=== PATIENT | female | born 1990 | race Caucasian/White ===

== ENCOUNTER 2021-04-08 08:20 | Inpatient (IN) | payer BC ==
[2021-04-08] MEDS ORDERED: HYDROmorphone 0.5 MG/0.5 ML Syringe IVPUSH ONE ×2 (08:36→10:16)
[2021-04-08] MEDS ORDERED: Metoclopramide 10 MG/2 ML SDV IVPUSH ONE (08:36)
--- NOTE | 2021-04-08 08:40 | EDM.PDOC ---
ED HPI GENERAL MEDICAL PROBLEM - General Chief Complaint: Gastrointestinal Problem Stated Complaint: HIRAL AMB Time Seen by Provider: 04/08/21 08:35 Source of Information: Reports: Patient History Limitations: Reports: No Limitations - History of Present Illness INITIAL COMMENTS - FREE TEXT/NARRATIVE: 30-year-old female presents to the ED per [place] [facility] from her own home here in [place]. Patient reports that she started to feel ill shortly after suppertime last evening. She did not eat much for supper. She developed nausea and started vomiting about 0300 hrs. this morning. This contained bilious emesis. She has had 2 large volume yellow diarrhea stools this morning associated with diffuse periumbilical cramping pain. Associated chills and reported fever by paramedics and the patient. She is afebrile upon presentation to the ED. no previous abdominal surgery. She states that she has underlying glomerular nephropathy since 2004 and is on tacrolimus course CellCept for this. She is also on prednisone 20 mg daily. She also states that she is on Bactrim double strength Wednesdays and Fridays 1 tablet since August of this last year when she started a higher dose of prednisone for her glomerulonephritis. She is not able to keep this down this morning. She will therefore require steroid supplementation. Of note the patient has completed both doses of her COVID-19 vaccine in November and December of this year. Onset: Today, Sudden Onset Date: 04/08/21 Onset Time: 03:00 (Started vomiting around 0300 hrs. this morning. Nausea was present after supper last night. Development of diarrhea x2 early this morning as well.) Duration: Hour(s):, Constant, Getting Worse Location: Reports: Abdomen (Mid abdominal cramping pain associate with nausea vomiting and diarrhea.) Quality: Reports: Sharp, Stabbing, Other (Strong colicky component to her pain.) Severity: Moderate Improves with: Reports: None Worsens with: Reports: None Context: Reports: Other. Denies: Activity, Exercise, Lifting, Sick Contact, Trauma Associated Symptoms: Reports: Fever/Chills (Fever and chills appreciated at home but not in the ED.), Loss of Appetite, Malaise, Nausea/Vomiting, Weakness. Denies: Confusion, Chest Pain, Cough, cough w sputum, Diaphoresis, Headaches, Seizure, Shortness of Breath, Syncope Treatments [employer]: Reports: Other (see below) (No medicine would stay down.) abdomen Pain Score (Numeric/FACES): 8 - Related Data Allergies Allergy/AdvReac Type Severity Reaction Status Date / Time No Known Allergies Allergy Verified 04/08/21 08:33 Home Meds: Home Meds Norethindrone-Ethin. 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.) : 0 Social & Family History - Tobacco Use Tobacco Use Status *Q: Never Tobacco User - Living Situation & Occupation Occupation: Employed ED ROS GENERAL - Review of Systems Review Of Systems: See Below Constitutional: Reports: Fever, Chills, Malaise, Weakness, Fatigue, Decreased Appetite HEENT: Reports: No Symptoms Respiratory: Reports: No Symptoms Cardiovascular: Reports: No Symptoms Endocrine: Reports: Fatigue GI/Abdominal: Reports: Abdominal Pain, Diarrhea (See history of present illness), Nausea, Vomiting : Reports: No Symptoms Musculoskeletal: Reports: No Symptoms Skin: Reports: No Symptoms Neurological: Reports: No Symptoms Psychiatric: Reports: No Symptoms Hematologic/Lymphatic: Reports: No Symptoms Immunologic: Reports: No Symptoms ED EXAM, GI/ABD - Physical Exam Exam: See Below Exam Limited By: No Limitations General Appearance: Alert, WD/WN, Mild Distress, Other (Patient vomited just before coming into the ED. Temperature is 36.6 degrees. Heart rate 117 and sinus at the bedside. Respiratory of 24 with O2 sats of 96% room air. BP elevated 154/106) Eyes: Bilateral: Normal Appearance (No scleral icterus or blepharal pallor.) Throat/Mouth: Other (Tongue is mildly coated and dry.) Head: Atraumatic, Normocephalic Neck: Normal Inspection, Supple, Non-Tender, Full Range of Motion. No: Lymphadenopathy (L), Lymphadenopathy (R) Respiratory/Chest: No Respiratory Distress, Lungs Clear, Normal Breath Sounds, No Accessory Muscle Use Cardiovascular: Normal Peripheral Pulses, Regular Rate, Rhythm, No Edema, No Gallop, No Murmur, No Rub GI/Abdominal Exam: Soft, No Organomegaly, No Abnormal Bruit, Tender (Tenderness suprapubically left lower quadrant without guarding or rebound.), Abnormal Bowel Sounds (Bowel sounds are hyperactive in all 4 quadrants.), Other (No surgical scars). No: Guarding, Rigid, Rebound Back Exam: Normal Inspection, Full Range of Motion. No: CVA Tenderness (L), CVA Tenderness (R) Extremities: Normal Inspection, Normal Range of Motion, Non-Tender, No Pedal Edema Neurological: Alert, Oriented, CN II-XII Intact, Normal Cognition Psychiatric: Anxious Skin Exam: Warm, Dry, Intact, Normal Color, No Rash Course - Vital Signs Last Recorded V/S: Last Vital Signs Temp 37.4 C 04/08/21 14:02 Pulse 91 04/08/21 14:02 Resp 15 04/08/21 13:58 BP 133/79 04/08/21 13:58 Pulse Ox 93 L 04/08/21 14:02 - Orders/Labs/Meds Orders: Active Orders 24 hr Category Date Time Status BLOOD CULTURE [MREF] Stat Lab 04/08/21 09:20 Received BLOOD CULTURE [MREF] Stat Lab 04/08/21 09:30 Received FECAL LACTOFERRIN [MREF] Stat Lab 04/08/21 10:32 Received STOOL CULTURE/SHIGA TOXIN [MREF] Stat Lab 04/08/21 10:32 Received Dextrose 5%-Lactated Ringers 1,000 ml Med 04/08/21 08:45 Active IV ASDIRECTED Sodium Chloride 0.9% [Normal Saline] 1,000 ml Med 04/08/21 10:15 Active IV ASDIRECTED Sodium Chloride 0.9% [Saline Flush] Med 04/08/21 11:19 Active 10 ml FLUSH ONETIME PRN Blood Culture x2 Reflex Set [OM.PC] Stat Oth 04/08/21 08:46 Ordered Medication Orders Dextrose/Lactated Ringer's (Dextrose 5%-Lactated Ringers) 1,000 mls @ 999 mls/hr IV ASDIRECTED DARON Last Admin: 04/08/21 08:45 Dose: 999 mls/hr Documented by: TANNER Sodium Chloride (Normal Saline) 1,000 mls @ 250 mls/hr IV ASDIRECTED [facility] Last Admin: 04/08/21 10:30 Dose: 250 mls/hr Documented by: TANNER Metronidazole 500 mg/ Premix 100 mls @ 100 mls/hr IV Q8H [facility] Last Admin: 04/08/21 14:50 Dose: 100 mls/hr Documented by: LACHELLE Ceftriaxone Sodium 2 gm/ (Sodium Chloride) 100 mls @ 200 mls/hr IV Q24H [facility] Sodium Chloride (Sodium Chloride 0.9% 10 Ml Syringe) 10 ml FLUSH ONETIME PRN PRN Reason: IV FLUSH Last Admin: 04/08/21 11:27 Dose: 10 ml Documented by: JORGE L Labs: Laboratory Tests 04/08/21 04/08/21 04/08/21 Range/Units 08:25 08:52 08:52 WBC 15.14 H (3.98-10.04) K/mm3 RBC 4.38 (3.98-5.22) M/mm3 Hgb 13.6 (11.2-15.7) gm/dl Hct 41.9 (34.1-44.9) % MCV 95.7 H (79.4-94.8) fl MCH 31.1 (25.6-32.2) pg MCHC 32.5 (32.2-35.5) g/dl RDW Std Deviation 47.4 H (36.4-46.3) fL Plt Count 264 (182-369) K/mm3 MPV 9.6 (9.4-12.3) fl Neut % (Auto) 87.8 H (34.0-71.1) % Lymph % (Auto) 5.6 L (19.3-51.7) % [place] % (Auto) 5.1 (4.7-12.5) % Eos % (Auto) 0.2 L (0.7-5.8) Baso % (Auto) 0.2 (0.1-1.2) % Neut # (Auto) 13.29 H (1.56-6.13) K/mm3 Lymph # (Auto) 0.85 L (1.18-3.74) K/mm3 [place] # (Auto) 0.77 H (0.24-0.36) K/mm3 Eos # (Auto) 0.03 L (0.04-0.36) K/mm3 Baso # (Auto) 0.03 (0.01-0.08) K/mm3 Manual Slide Review Normal smear Sodium 139 (136-145) mEq/L Potassium 3.7 (3.5-5.1) mEq/L Chloride 104 (98-107) mEq/L Carbon Dioxide 23 (21-32) mEq/L Anion Gap 15.7 H (5-15) BUN 21 H (7-18) mg/dL Creatinine 1.2 H (0.55-1.02) mg/dL Est Cr Clr Drug Dosing 61.12 mL/min Estimated GFR (MDRD) 52 (>60) mL/min BUN/Creatinine Ratio 17.5 (14-18) Glucose 135 H (70-99) mg/dL Lactic Acid (0.4-2.0) mmol/L Calcium 8.0 L (8.5-10.1) mg/dL Magnesium 1.5 L (1.8-2.4) mg/dL Total Bilirubin 0.4 (0.2-1.0) mg/dL AST 25 (15-37) U/L ALT 27 (14-59) U/L Alkaline Phosphatase 18 L (46-116) U/L C-Reactive Protein 2.4 H* (<1.0) mg/dL Total Protein 6.1 L (6.4-8.2) g/dl Albumin 3.0 L (3.4-5.0) g/dl Globulin 3.1 gm/dL Albumin/Globulin Ratio 1.0 (1-2) Lipase 177 (73-393) U/L Urine Color (Yellow) Urine Appearance (Clear) Urine pH (5.0-8.0) Ur Specific [place] (1.005-1.030) Urine Protein (Negative) Urine Glucose (UA) (Negative) Urine Ketones (Negative) Urine Occult Blood (Negative) Urine Nitrite (Negative) Urine Bilirubin (Negative) Urine Urobilinogen (0.2-1.0) Ur Leukocyte Esterase (Negative) Urine RBC (0-5) /hpf Urine WBC (0-5) /hpf Ur Epithelial Cells (0-5) /hpf Urine Bacteria (FEW) /hpf Urine Mucus (FEW) /hpf C.difficile 027-NAP1-B1 C. difficile Tox (PCR) Influenza Type A RNA Negative (NEGATIVE) Influenza Type B RNA Negative (NEGATIVE) SARS-CoV-2 RNA (TWAN) Negative (NEGATIVE) 04/08/21 04/08/21 04/08/21 Range/Units 09:30 10:32 10:35 WBC (3.98-10.04) K/mm3 RBC (3.98-5.22) M/mm3 Hgb (11.2-15.7) gm/dl Hct (34.1-44.9) % MCV (79.4-94.8) fl MCH (25.6-32.2) pg MCHC (32.2-35.5) g/dl RDW Std Deviation (36.4-46.3) fL Plt Count (182-369) K/mm3 MPV (9.4-12.3) fl Neut % (Auto) (34.0-71.1) % Lymph % (Auto) (19.3-51.7) % [place] % (Auto) (4.7-12.5) % Eos % (Auto) (0.7-5.8) Baso % (Auto) (0.1-1.2) % Neut # (Auto) (1.56-6.13) K/mm3 Lymph # (Auto) (1.18-3.74) K/mm3 [place] # (Auto) (0.24-0.36) K/mm3 Eos # (Auto) (0.04-0.36) K/mm3 Baso # (Auto) (0.01-0.08) K/mm3 Manual Slide Review Sodium (136-145) mEq/L Potassium (3.5-5.1) mEq/L Chloride (98-107) mEq/L Carbon Dioxide (21-32) mEq/L Anion Gap (5-15) BUN (7-18) mg/dL Creatinine (0.55-1.02) mg/dL Est Cr Clr Drug Dosing mL/min Estimated GFR (MDRD) (>60) mL/min BUN/Creatinine Ratio (14-18) Glucose (70-99) mg/dL Lactic Acid 3.0 H* (0.4-2.0) mmol/L Calcium (8.5-10.1) mg/dL Magnesium (1.8-2.4) mg/dL Total Bilirubin (0.2-1.0) mg/dL AST (15-37) U/L ALT (14-59) U/L Alkaline Phosphatase (46-116) U/L C-Reactive Protein (<1.0) mg/dL Total Protein (6.4-8.2) g/dl Albumin (3.4-5.0) g/dl Globulin gm/dL Albumin/Globulin Ratio (1-2) Lipase (73-393) U/L Urine Color Yellow (Yellow) Urine Appearance Clear (Clear) Urine pH 6.5 (5.0-8.0) Ur Specific [place] 1.025 (1.005-1.030) Urine Protein 2+ H (Negative) Urine Glucose (UA) Trace H (Negative) Urine Ketones Negative (Negative) Urine Occult Blood 1+ H (Negative) Urine Nitrite Negative (Negative) Urine Bilirubin Negative (Negative) Urine Urobilinogen 0.2 (0.2-1.0) Ur Leukocyte Esterase Trace H (Negative) Urine RBC 5-10 H (0-5) /hpf Urine WBC 0-5 (0-5) /hpf Ur Epithelial Cells 0-5 (0-5) /hpf Urine Bacteria Moderate H (FEW) /hpf Urine Mucus Few (FEW) /hpf C.difficile 027-NAP1-B1 Presumptive negative C. difficile Tox (PCR) Negative Influenza Type A RNA (NEGATIVE) Influenza Type B RNA (NEGATIVE) SARS-CoV-2 RNA (TWAN) (NEGATIVE) 04/08/21 Range/Units 12:10 WBC (3.98-10.04) K/mm3 RBC (3.98-5.22) M/mm3 Hgb (11.2-15.7) gm/dl Hct (34.1-44.9) % MCV (79.4-94.8) fl MCH (25.6-32.2) pg MCHC (32.2-35.5) g/dl RDW Std Deviation (36.4-46.3) fL Plt Count (182-369) K/mm3 MPV (9.4-12.3) fl Neut % (Auto) (34.0-71.1) % Lymph % (Auto) (19.3-51.7) % [place] % (Auto) (4.7-12.5) % Eos % (Auto) (0.7-5.8) Baso % (Auto) (0.1-1.2) % Neut # (Auto) (1.56-6.13) K/mm3 Lymph # (Auto) (1.18-3.74) K/mm3 [place] # (Auto) (0.24-0.36) K/mm3 Eos # (Auto) (0.04-0.36) K/mm3 Baso # (Auto) (0.01-0.08) K/mm3 Manual Slide Review Sodium (136-145) mEq/L Potassium (3.5-5.1) mEq/L Chloride (98-107) mEq/L Carbon Dioxide (21-32) mEq/L Anion Gap (5-15) BUN (7-18) mg/dL Creatinine (0.55-1.02) mg/dL Est Cr Clr Drug Dosing mL/min Estimated GFR (MDRD) (>60) mL/min BUN/Creatinine Ratio (14-18) Glucose (70-99) mg/dL Lactic Acid 1.0 (0.4-2.0) mmol/L Calcium (8.5-10.1) mg/dL Magnesium (1.8-2.4) mg/dL Total Bilirubin (0.2-1.0) mg/dL AST (15-37) U/L ALT (14-59) U/L Alkaline Phosphatase (46-116) U/L C-Reactive Protein (<1.0) mg/dL Total Protein (6.4-8.2) g/dl Albumin (3.4-5.0) g/dl Globulin gm/dL Albumin/Globulin Ratio (1-2) Lipase (73-393) U/L Urine Color (Yellow) Urine Appearance (Clear) Urine pH (5.0-8.0) Ur Specific [place] (1.005-1.030) Urine Protein (Negative) Urine Glucose (UA) (Negative) Urine Ketones (Negative) Urine Occult Blood (Negative) Urine Nitrite (Negative) Urine Bilirubin (Negative) Urine Urobilinogen (0.2-1.0) Ur Leukocyte Esterase (Negative) Urine RBC (0-5) /hpf Urine WBC (0-5) /hpf Ur Epithelial Cells (0-5) /hpf Urine Bacteria (FEW) /hpf Urine Mucus (FEW) /hpf C.difficile 027-NAP1-B1 C. difficile Tox (PCR) Influenza Type A RNA (NEGATIVE) Influenza Type B RNA (NEGATIVE) SARS-CoV-2 RNA (TWAN) (NEGATIVE) Meds: Medications Generic Name Dose Route Start Last Admin Trade Name Tabitha PRN Reason Stop Dose Admin Dextrose/Lactated Ringer's 1,000 mls @ 999 mls/hr 04/08/21 08:45 04/08/21 08:45 Dextrose 5%-Lactated Ringers IV 999 mls/hr ASDIRECTED DARON Administration Sodium Chloride 1,000 mls @ 250 mls/hr 04/08/21 10:15 04/08/21 10:30 Normal Saline IV 250 mls/hr ASDIRECTED DARON Administration Metronidazole 500 mg/ Premix 100 mls @ 100 mls/hr 04/08/21 13:30 04/08/21 14:50 IV 100 mls/hr Q8H DARON Administration Ceftriaxone Sodium 2 gm/ 100 mls @ 200 mls/hr 04/09/21 12:00 Sodium Chloride IV Q24H DARON Sodium Chloride 10 ml 04/08/21 11:19 04/08/21 11:27 Sodium Chloride 0.9% 10 Ml Syringe FLUSH 10 ml ONETIME PRN Administration IV FLUSH Discontinued Medications Generic Name Dose Route Start Last Admin Trade Name Tabitha PRN Reason Stop Dose Admin Acetaminophen 975 mg 04/08/21 10:48 04/08/21 12:23 Acetaminophen 325 Mg Tab PO 04/08/21 10:49 975 mg ONETIME ONE Administration Hydrocortisone Sodium Succinate 100 mg 04/08/21 08:51 04/08/21 10:31 Hydrocortisone Sodium Succinate 100 Mg/2 Ml Sdv IVPUSH 04/08/21 08:52 100 mg ONETIME ONE Administration Hydromorphone HCl 0.5 mg 04/08/21 08:36 04/08/21 08:45 Hydromorphone 0.5 Mg/0.5 Ml Syringe IVPUSH 04/08/21 08:37 0.5 mg ONETIME ONE Administration Hydromorphone HCl 0.5 mg 04/08/21 10:16 04/08/21 10:31 Hydromorphone 0.5 Mg/0.5 Ml Syringe IVPUSH 04/08/21 10:17 0.5 mg ONETIME ONE Administration Ceftriaxone Sodium 2 gm/ 100 mls @ 200 mls/hr 04/08/21 12:24 04/08/21 12:59 Sodium Chloride IV 04/08/21 12:53 200 mls/hr ONETIME ONE Administration Magnesium Sulfate 2 gm/ Premix 50 mls @ 25 mls/hr 04/08/21 13:08 04/08/21 14:50 IV 04/08/21 15:07 25 mls/hr ONETIME ONE Administration Iopamidol 100 ml 04/08/21 11:19 04/08/21 11:27 Iopamidol 612 Mg/Ml 100 Ml Bottle IVPUSH 04/08/21 11:20 100 ml ONETIME ONE Administration Metoclopramide HCl 7.5 mg 04/08/21 08:36 04/08/21 08:45 Metoclopramide 10 Mg/2 Ml Sdv IVPUSH 04/08/21 08:37 7.5 mg ONETIME ONE Administration Ondansetron HCl 4 mg 04/08/21 10:16 04/08/21 10:30 Ondansetron 4 Mg/2 Ml Sdv IVPUSH 04/08/21 10:17 4 mg ONETIME ONE Administration - Radiology Interpretation Free Text/Narrative:: 30-year-old female presents to the ED per [place] [facility] after developing acute gastrointestinal symptoms. She felt mildly nauseated after supper last evening and did not eat much for supper. By 0300 hrs. this morning she developed acute onset of nausea vomiting of bilious emesis. After this she developed yellow high-volume diarrhea stool loss x2. No hematemesis no hematochezia. Of note the patient is immunocompromised due to underlying glomerular nephritis. She takes prednisone 20 mg daily in the morning and therefore is steroid-dependent. She will be given hydrocortisone 100 mg IV. She is also on CellCept. Plan IV D5 normal saline at open. Given Reglan 7.5 mg IV with Dilaudid 0.5 mg IV for nausea and pain relief. Routine labs to be collected to include a serum lipase. 1 view of the abdomen will be obtained. - Re-Assessments/Exams Free Text/Narrative Re-Assessment/Exam: 04/08/21 09:49 1 view of the abdomen reveals mildly dilated loop of small bowel mid and left lower quadrant of the abdomen. No air-fluid levels evident. Air scattered throughout the transverse colon. Positive gas in the rectal vault. 04/08/21 09:50 White count is elevated at 15.14 with a left shift of 87.8% neutrophils. Hemoglobin is 13.6 with hematocrit of 41.9. Platelet count normal at 264,000. No bands cells appreciated on the smear. Sodium 139 with potassium 3.7. Chloride 104 the bicarb of 23. Anion gap is 15.7. BUN is 21 with a creatinine of 1.2 and a GFR is 52. Glucose slightly elevated 135. Calcium 8.0 slightly low magnesium slightly low at 1.5. Liver function normal C-reactive protein is 2.4. Total protein 6.1 albumin fraction 3.0 globulin is 3.1. Lipase is normal at 177. COVID-19 screen as well as influenza screen is negative. 04/08/21 10:17 patient is experiencing more nausea and pain at this time. She has completed first liter of IV fluids D5 normal saline at open. Lactic acid has returned elevated at 3.0. I will repeat give her Zofran 4 mg IV for nausea relief. Repeat Dilaudid 0.5 mg IV for pain relief. IV will be normal saline at 250 mils per hour at this time. 04/08/21 10:45: I have reexamined the patient's abdomen. She is now markedly febrile. Bowel sounds remain active in all 4 quadrants. She has had 1 diarrhea stool in the ED but it was slightly contaminated by urine. It would not be utilized for stool culture. She has no localized peritoneal signs or evidence of a surgical abdomen. I will proceed with CT of the abdomen with IV contrast only since she is still very nauseated and just had another dose of Zofran. We will evaluate if she has a significant colitis. 04/08/21 11:51 Urinalysis shows 2+ proteinuria 1+ occult blood trace of leukocyte Estrace. The smear micro reveals 5-10 RBCs per high-power field and 0-5 white blood cells with moderate bacteria. C. difficile enterotoxin is negative.CT of the abdomen and pelvis has been completed with IV contrast only due to patient being nauseated and vomiting. Renal function revealed a GFR 52. CT reveals a small hiatal hernia. Bases of the lungs appear clear. Liver appears homogeneous with no intraductal dilatation. Gallbladder shows no calcified gallstones. No intraductal dilatation. Pancreas is normal with no ductal dilatation. Spleen is relatively small. Both kidneys reveal contrast with thin and small cyst within the cortex cortical structures of the left upper pole of the kidney. Ureters are normal. Bladder fills adequately. Abdominal aorta shows no aneurysm. No retroperitoneal adenopathy or mesenteric abnormalities are seen. There are numerous dilated loops of small bowel containing fluid. Free fluid is seen in the pelvis. Uterus appears normal. Bowel wall thickening is seen within the distal ileum. No significant bowel dilatation is otherwise seen. Delayed images show contrast within the distal ureters and bladder. Bone window settings were reviewed which show no acute osseous abnormalities. Bowel wall thickening within the distal ileum either represents gastroenteritis although inflammatory bowel disease like Crohn's disease needs to be considered. The plan will be to admit the patient to the hospital and she is in agreement. Her is coming down from [place] where she resides. We need a good stool sample for culture as clinically she appears to have picked up a toxin or bacterial infection. Free Text/Narrative Re-Assessment/Exam: 04/08/21 12:26 I have spoken with Dr. Pavel Perez primary education professor hospitalist with a view to admission to the hospital. He is asked that we start the patient on Rocephin and she will therefore be started on Rocephin 2 g IV. Departure - Departure Time of Disposition: 12:39 Disposition: Admitted As Inpatient 65 Condition: Fair Clinical Impression: Acute infective gastroenteritis, Glomerulonephritis, Immunocompromised due to corticosteroids, Lactic acidosis - Discharge Information *PRESCRIPTION DRUG MONITORING PROGRAM REVIEWED*: Not Applicable *COPY OF PRESCRIPTION DRUG MONITORING REPORT IN PATIENT VINOD: Not Applicable Sepsis Event Note (ED) - Evaluation Sepsis Screening Result: No Definite Risk - Focused Exam Vital Signs: Vital Signs Temp Pulse Resp BP Pulse Ox 04/08/21 08:29 36.6 C 117 H 24 H 158/120 H 96 - My Orders Last 24 Hours: My Active Orders 04/08/21 08:45 Dextrose 5%-Lactated Ringers 1,000 ml IV ASDIRECTED 04/08/21 08:46 Blood Culture x2 Reflex Set [OM.PC] Stat 04/08/21 09:20 BLOOD CULTURE [MREF] Stat 04/08/21 09:30 BLOOD CULTURE [MREF] Stat 04/08/21 10:15 Sodium Chloride 0.9% [Normal Saline] 1,000 ml IV ASDIRECTED 04/08/21 10:32 FECAL LACTOFERRIN [MREF] Stat STOOL CULTURE/SHIGA TOXIN [MREF] Stat 04/08/21 11:19 Sodium Chloride 0.9% [Saline Flush] 10 ml FLUSH ONETIME PRN - Assessment/Plan Last 24 Hours: My Active Orders 04/08/21 08:45 Dextrose 5%-Lactated Ringers 1,000 ml IV ASDIRECTED 04/08/21 08:46 Blood Culture x2 Reflex Set [OM.PC] Stat 04/08/21 09:20 BLOOD CULTURE [MREF] Stat 04/08/21 09:30 BLOOD CULTURE [MREF] Stat 04/08/21 10:15 Sodium Chloride 0.9% [Normal Saline] 1,000 ml IV ASDIRECTED 04/08/21 10:32 FECAL LACTOFERRIN [MREF] Stat STOOL CULTURE/SHIGA TOXIN [MREF] Stat 04/08/21 11:19 Sodium Chloride 0.9% [Saline Flush] 10 ml FLUSH ONETIME PRN
[2021-04-08] MEDS ORDERED: Dextrose 5%-Lactated Ringers 1,000 ML IV SCH (08:45)
[2021-04-08] MEDS ORDERED: Hydrocortisone Sodium Succinate 100 MG/2 ML SDV IVPUSH ONE (08:51)
[2021-04-08 09:11] LABS: CORONAVIRUS COVID-19 NAA NEGATIVE (NEGATIVE)
[2021-04-08] MEDS ORDERED: Sodium Chloride 0.9% 1,000 ML IV SCH (10:15)
[2021-04-08] MEDS ORDERED: Ondansetron 4 MG/2 ML SDV IVPUSH ONE (10:16)
--- NOTE | 2021-04-08 10:34 | CR ---
Abdomen: Supine view of the abdomen was obtained. Comparison: No prior abdominal imaging is available. Scattered gas within the colon and small bowel are noted. At this time, these findings are felt to be within normal limits. Minimal calcification is seen within the right pelvis compatible with a phlebolith. Small calcification is noted off the superior left hip which is believed to be incidental. Visualized lung bases are clear. No discrete soft tissue abnormality is seen. Impression: 1. Findings believed to be incidental as described above. 2. Nothing acute is seen. Diagnostic code #2
[2021-04-08] MEDS ORDERED: Acetaminophen 325 MG Tab PO ONE (10:48)
[2021-04-08] MEDS ORDERED: Iopamidol 612 MG/ML 100 ML Bottle IVPUSH ONE (11:19)
[2021-04-08] MEDS ORDERED: Sodium Chloride 0.9% 10 ML Syringe FLUSH PRN (11:19)
--- NOTE | 2021-04-08 11:51 | CT ---
CT abdomen and pelvis Technique: Multiple axial sections were obtained from above the dome of the diaphragm inferiorly through the pubic symphysis. Intravenous contrast was utilized. No oral contrast has been given. Delayed images were obtained through the bladder. Reconstructed coronal and sagittal images were obtained. Comparison: Prior plain film abdominal x-ray performed earlier on the same day. Findings: Visualized lung bases show nothing acute. Liver contains no focal parenchymal abnormality. Adrenal gland shows no abnormal calcifications. Spleen size is normal. Gallbladder contains no calcified gallstones. Adrenal glands show no nodule. Kidneys show symmetric contrast enhancement. Left kidney shows a cyst measuring 8 mm. Pancreas appears within normal limits. Abdominal aorta shows no aneurysm. No retroperitoneal adenopathy or mesenteric abnormalities are seen. Free fluid seen within the pelvis. Bowel wall thickening is seen within the distal ileum. No significant bowel dilatation is otherwise seen. Delayed images shows contrast within the distal ureters and bladder. Bone window settings were reviewed which show no acute osseous abnormality. Impression: 1. Bowel wall thickening within the distal ileum. This either represents gastroenteritis although inflammatory bowel disease (Crohn's disease) needs to be considered. 2. Free fluid within the pelvis which could relate to the ileal problem as well as being physiologic. 3. Other findings which are nonacute as described above. Diagnostic code #3
[2021-04-08] MEDS ORDERED: cefTRIAXone 2 GM in Sodium Chloride 0.9% 100 ML IV ONE (12:24)
[2021-04-08] MEDS ORDERED: Magnesium Sulfate/Water 2 GM in Premix Bag 1 BAG IV ONE (13:08)
--- NOTE | 2021-04-08 13:59 | PCM.HP.2 ---
<Mike Penaloza - Last Filed: 04/08/21 16:05> H&P History of Present Illness - General Date of Service: 04/08/21 Admit Problem/Dx: Admission Diagnosis/Problem Admission Diagnosis/Problem Gastroenteritis Source of Information: Patient, Old Records, Provider, RN, RN Notes Reviewed History Limitations: Reports: No Limitations - History of Present Illness Initial Comments - Free Text/Narative: This is a 30-year-old female who presents to our ER on 04/08/2021 via [place] [facility] with nausea, vomiting, and diarrhea. Patient resides in [place] but has been working in the [place] area for [employer]. She reports she started to feel ill yesterday around suppertime. She states she has been mostly eating fast food, but nothing has been questionable. She had [employer] for lunch and [employer] for supper. States she started to feel nausea and vomiting this morning around 3 AM. Emesis was bilious and there was no blood. She reports then she developed diffuse abdominal pain and cramping along with yellow diarrhea. States she was chilled and was noted to have a fever by paramedics. Denies any recent swimming or intake of questionable water. Denies any prior abdominal surgery. 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 She has been unable to keep any of her medications down. She has been vaccinated for COVID-19. In the ED temp was noted to be 36.6. Pulse 117. Blood pressure 158/120. Respirations 24. Pulse ox 96% on room air. Labs are obtained showing a WBC of 15.14. Hemoglobin 13.6. Hematocrit 41.9. She is macrocytic. Platelets 264,000. Neutrophils are elevated at 87.8%. Sodium 139. Potassium 3.7. Chloride 104. Carbon dioxide 23. Anion gap 15.7. BUN is 21. Creatinine 1.2. GFR 52. Glucose 135. Calcium 8.0. Magnesium 1.5. Bilirubin 0.4. AST is 25, ALT 27, alkaline phosphatase 18. CRP is 2.4. Protein is 6.1. Albumin is 3.0. Influenza a and B are negative. SARS-CoV-2 RNA is negative. Lactic acid is 3.0. Repeat lactic acid is 1.0. UA is obtained and shows 2+ protein, 1+ occult blood, trace glucose, trace leukocyte esterase, moderate bacteria. C. difficile is negative. She is given Dilaudid and Tylenol for pain. She is given a D5LR bolus and started on IV fluids. She is given 100 mg IV push cortisone. She is also given Zofran and metoclopramide for nausea. Abdominal x-ray is obtained showing incidental findings and nothing acute. Abdominal CT is obtained showing 1) bowel wall thickening within the distal ileum this either represents gastroenteritis although inflammatory bowel disease (Crohn's disease) needs to be considered. 2) There is free fluid in the pelvis which could relate ileal problems as well as being physiologic. 3.) Other findings which are nonacute as described above. 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 She is chronically immunocompromised. She reports she was just going to establish with a new provider in [place] but her appointment is the end of April. She sees a work manager out of [place]. She is a full code. She is subsequently admitted to the medical floor for management and further work-up of her gastroenteritis. abdomen Pain Score (Numeric/FACES): 8 - Related Data Allergies/Adverse Reactions: Allergies Allergy/AdvReac Type Severity Reaction Status Date / Time No Known Allergies Allergy Verified 04/08/21 08:33 Home Medications: Home Meds Norethindrone-Ethin. Estradiol [Nortrel 0.5-35-28 Tablet] 1 tab PO DAILY [History] Sulfamethoxazole/Trimethoprim [Sulfamethoxazole-Tmp Ss Tablet] 1 each PO MOWEFR 04/08/21 [History] cycloSPORINE, Modified [Neoral] 100 mg PO BID 04/08/21 [History] lisinopriL [Lisinopril] 40 mg PO DAILY 04/08/21 [History] predniSONE [Prednisone] 20 mg PO DAILY 04/08/21 [History] Past Medical History - Past Health History Medical/Surgical History: Denies Medical/Surgical History Genitourinary History: Reports: Other (See Below) (Patient has a glomerulonephritis--Focal sclerosing basement membrane disease.) Social & Family History - Tobacco Use Tobacco Use Status *Q: Never Tobacco User - Living Situation & Occupation Occupation: Employed H&P Review of Systems - Review of Systems: Review Of Systems: See Below General: Reports: Weakness, Fatigue. Denies: Fever (None currently but noted by paramedics), Chills, Diaphoresis HEENT: Reports: No Symptoms. Denies: Headaches, Sore Throat Pulmonary: Reports: No Symptoms. Denies: Shortness of Breath, Wheezing, Pleuritic Chest Pain, Cough, Sputum Cardiovascular: Reports: No Symptoms. Denies: Chest Pain, Palpitations, Dyspnea on Exertion, Edema Gastrointestinal: Reports: Abdominal Pain (Currently mild right upper quadrant when she says she has had for some time.). Denies: Constipation, Diarrhea (None since the ER), Difficulty Swallowing, Distension, Hematochezia, Melena, Mucous in Stool, Nausea (None since the ER), Vomiting Genitourinary: Reports: No Symptoms. Denies: Pain Musculoskeletal: Reports: No Symptoms Skin: Reports: No Symptoms. Denies: Cyanosis Psychiatric: Reports: No Symptoms. Denies: Confusion Neurological: Reports: No Symptoms. Denies: Confusion, Dizziness, Headache, Numbness, Pre-Existing Deficit, Syncope, Tingling, Difficulty Walking, Gait Disturbance Hematologic/Lymphatic: Reports: No Symptoms Immunologic: Reports: No Symptoms Exam - Exam Exam: See Below - Vital Signs Vital Signs: Last Vital Signs Temp 98 F 04/08/21 08:29 Pulse 117 H 04/08/21 08:29 Resp 24 H 04/08/21 08:29 BP 158/120 H 04/08/21 08:29 Pulse Ox 96 04/08/21 08:29 Weight: 81.647 kg - Exam Quality Assessment: DVT Prophylaxis. No: Supplemental Oxygen, Urinary Catheter General: Alert, Oriented, Cooperative HEENT: Conjunctiva Clear, EACs Clear, Posterior Pharynx Clear. No: Mucosa Moist & [place] (Mildly dry ) Neck: Supple, Trachea Midline Lungs: Clear to Auscultation, Normal Respiratory Effort Cardiovascular: Regular Rate, Regular Rhythm GI/Abdominal Exam: Soft, Non-Tender, No Distention, Abnormal Bowel Sounds (Hyperactive ) (Female) Exam: Deferred Rectal (Female) Exam: Deferred Back Exam: Normal Inspection, Full Range of Motion Extremities: Normal Inspection, Normal Range of Motion, Non-Tender, No Pedal Edema, Normal Capillary Refill Peripheral Pulses: 3+: Radial (L), Radial (R), Dorsalis Pedis (L), Dorsalis Pedis (R) Skin: Warm, Dry, Intact Neurological: Cranial Nerves Intact (Grossly) Neuro Extensive - Mental Status: Alert, Oriented x3, Memory Intact Psychiatric: Alert, Normal Affect, Normal Mood - Patient Data Lab Results Last 24 hrs: Laboratory Results - last 24 hr 04/08/21 04/08/21 04/08/21 Range/Units 08:25 08:52 08:52 WBC 15.14 H (3.98-10.04) K/mm3 RBC 4.38 (3.98-5.22) M/mm3 Hgb 13.6 (11.2-15.7) gm/dl Hct 41.9 (34.1-44.9) % MCV 95.7 H (79.4-94.8) fl MCH 31.1 (25.6-32.2) pg MCHC 32.5 (32.2-35.5) g/dl RDW Std Deviation 47.4 H (36.4-46.3) fL Plt Count 264 (182-369) K/mm3 MPV 9.6 (9.4-12.3) fl Neut % (Auto) 87.8 H (34.0-71.1) % Lymph % (Auto) 5.6 L (19.3-51.7) % [place] % (Auto) 5.1 (4.7-12.5) % Eos % (Auto) 0.2 L (0.7-5.8) Baso % (Auto) 0.2 (0.1-1.2) % Neut # (Auto) 13.29 H (1.56-6.13) K/mm3 Lymph # (Auto) 0.85 L (1.18-3.74) K/mm3 [place] # (Auto) 0.77 H (0.24-0.36) K/mm3 Eos # (Auto) 0.03 L (0.04-0.36) K/mm3 Baso # (Auto) 0.03 (0.01-0.08) K/mm3 Manual Slide Review Normal smear Sodium 139 (136-145) mEq/L Potassium 3.7 (3.5-5.1) mEq/L Chloride 104 (98-107) mEq/L Carbon Dioxide 23 (21-32) mEq/L Anion Gap 15.7 H (5-15) BUN 21 H (7-18) mg/dL Creatinine 1.2 H (0.55-1.02) mg/dL Est Cr Clr Drug Dosing 61.12 mL/min Estimated GFR (MDRD) 52 (>60) mL/min BUN/Creatinine Ratio 17.5 (14-18) Glucose 135 H (70-99) mg/dL Lactic Acid (0.4-2.0) mmol/L Calcium 8.0 L (8.5-10.1) mg/dL Magnesium 1.5 L (1.8-2.4) mg/dL Total Bilirubin 0.4 (0.2-1.0) mg/dL AST 25 (15-37) U/L ALT 27 (14-59) U/L Alkaline Phosphatase 18 L (46-116) U/L C-Reactive Protein 2.4 H* (<1.0) mg/dL Total Protein 6.1 L (6.4-8.2) g/dl Albumin 3.0 L (3.4-5.0) g/dl Globulin 3.1 gm/dL Albumin/Globulin Ratio 1.0 (1-2) Lipase 177 (73-393) U/L Urine Color (Yellow) Urine Appearance (Clear) Urine pH (5.0-8.0) Ur Specific [place] (1.005-1.030) Urine Protein (Negative) Urine Glucose (UA) (Negative) Urine Ketones (Negative) Urine Occult Blood (Negative) Urine Nitrite (Negative) Urine Bilirubin (Negative) Urine Urobilinogen (0.2-1.0) Ur Leukocyte Esterase (Negative) Urine RBC (0-5) /hpf Urine WBC (0-5) /hpf Ur Epithelial Cells (0-5) /hpf Urine Bacteria (FEW) /hpf Urine Mucus (FEW) /hpf C.difficile 027-NAP1-B1 C. difficile Tox (PCR) Influenza Type A RNA Negative (NEGATIVE) Influenza Type B RNA Negative (NEGATIVE) SARS-CoV-2 RNA (TWAN) Negative (NEGATIVE) 04/08/21 04/08/21 04/08/21 Range/Units 09:30 10:32 10:35 WBC (3.98-10.04) K/mm3 RBC (3.98-5.22) M/mm3 Hgb (11.2-15.7) gm/dl Hct (34.1-44.9) % MCV (79.4-94.8) fl MCH (25.6-32.2) pg MCHC (32.2-35.5) g/dl RDW Std Deviation (36.4-46.3) fL Plt Count (182-369) K/mm3 MPV (9.4-12.3) fl Neut % (Auto) (34.0-71.1) % Lymph % (Auto) (19.3-51.7) % [place] % (Auto) (4.7-12.5) % Eos % (Auto) (0.7-5.8) Baso % (Auto) (0.1-1.2) % Neut # (Auto) (1.56-6.13) K/mm3 Lymph # (Auto) (1.18-3.74) K/mm3 [place] # (Auto) (0.24-0.36) K/mm3 Eos # (Auto) (0.04-0.36) K/mm3 Baso # (Auto) (0.01-0.08) K/mm3 Manual Slide Review Sodium (136-145) mEq/L Potassium (3.5-5.1) mEq/L Chloride (98-107) mEq/L Carbon Dioxide (21-32) mEq/L Anion Gap (5-15) BUN (7-18) mg/dL Creatinine (0.55-1.02) mg/dL Est Cr Clr Drug Dosing mL/min Estimated GFR (MDRD) (>60) mL/min BUN/Creatinine Ratio (14-18) Glucose (70-99) mg/dL Lactic Acid 3.0 H* (0.4-2.0) mmol/L Calcium (8.5-10.1) mg/dL Magnesium (1.8-2.4) mg/dL Total Bilirubin (0.2-1.0) mg/dL AST (15-37) U/L ALT (14-59) U/L Alkaline Phosphatase (46-116) U/L C-Reactive Protein (<1.0) mg/dL Total Protein (6.4-8.2) g/dl Albumin (3.4-5.0) g/dl Globulin gm/dL Albumin/Globulin Ratio (1-2) Lipase (73-393) U/L Urine Color Yellow (Yellow) Urine Appearance Clear (Clear) Urine pH 6.5 (5.0-8.0) Ur Specific [place] 1.025 (1.005-1.030) Urine Protein 2+ H (Negative) Urine Glucose (UA) Trace H (Negative) Urine Ketones Negative (Negative) Urine Occult Blood 1+ H (Negative) Urine Nitrite Negative (Negative) Urine Bilirubin Negative (Negative) Urine Urobilinogen 0.2 (0.2-1.0) Ur Leukocyte Esterase Trace H (Negative) Urine RBC 5-10 H (0-5) /hpf Urine WBC 0-5 (0-5) /hpf Ur Epithelial Cells 0-5 (0-5) /hpf Urine Bacteria Moderate H (FEW) /hpf Urine Mucus Few (FEW) /hpf C.difficile 027-NAP1-B1 Presumptive negative C. difficile Tox (PCR) Negative Influenza Type A RNA (NEGATIVE) Influenza Type B RNA (NEGATIVE) SARS-CoV-2 RNA (TWAN) (NEGATIVE) 04/08/21 Range/Units 12:10 WBC (3.98-10.04) K/mm3 RBC (3.98-5.22) M/mm3 Hgb (11.2-15.7) gm/dl Hct (34.1-44.9) % MCV (79.4-94.8) fl MCH (25.6-32.2) pg MCHC (32.2-35.5) g/dl RDW Std Deviation (36.4-46.3) fL Plt Count (182-369) K/mm3 MPV (9.4-12.3) fl Neut % (Auto) (34.0-71.1) % Lymph % (Auto) (19.3-51.7) % [place] % (Auto) (4.7-12.5) % Eos % (Auto) (0.7-5.8) Baso % (Auto) (0.1-1.2) % Neut # (Auto) (1.56-6.13) K/mm3 Lymph # (Auto) (1.18-3.74) K/mm3 [place] # (Auto) (0.24-0.36) K/mm3 Eos # (Auto) (0.04-0.36) K/mm3 Baso # (Auto) (0.01-0.08) K/mm3 Manual Slide Review Sodium (136-145) mEq/L Potassium (3.5-5.1) mEq/L Chloride (98-107) mEq/L Carbon Dioxide (21-32) mEq/L Anion Gap (5-15) BUN (7-18) mg/dL Creatinine (0.55-1.02) mg/dL Est Cr Clr Drug Dosing mL/min Estimated GFR (MDRD) (>60) mL/min BUN/Creatinine Ratio (14-18) Glucose (70-99) mg/dL Lactic Acid 1.0 (0.4-2.0) mmol/L Calcium (8.5-10.1) mg/dL Magnesium (1.8-2.4) mg/dL Total Bilirubin (0.2-1.0) mg/dL AST (15-37) U/L ALT (14-59) U/L Alkaline Phosphatase (46-116) U/L C-Reactive Protein (<1.0) mg/dL Total Protein (6.4-8.2) g/dl Albumin (3.4-5.0) g/dl Globulin gm/dL Albumin/Globulin Ratio (1-2) Lipase (73-393) U/L Urine Color (Yellow) Urine Appearance (Clear) Urine pH (5.0-8.0) Ur Specific [place] (1.005-1.030) Urine Protein (Negative) Urine Glucose (UA) (Negative) Urine Ketones (Negative) Urine Occult Blood (Negative) Urine Nitrite (Negative) Urine Bilirubin (Negative) Urine Urobilinogen (0.2-1.0) Ur Leukocyte Esterase (Negative) Urine RBC (0-5) /hpf Urine WBC (0-5) /hpf Ur Epithelial Cells (0-5) /hpf Urine Bacteria (FEW) /hpf Urine Mucus (FEW) /hpf C.difficile 027-NAP1-B1 C. difficile Tox (PCR) Influenza Type A RNA (NEGATIVE) Influenza Type B RNA (NEGATIVE) SARS-CoV-2 RNA (TWAN) (NEGATIVE) Result Diagrams: 04/08/21 08:52 04/08/21 08:52 Sepsis Event Note - Evaluation Sepsis Screening Result: Possible Sepsis Risk - Focused Exam Vital Signs: Vital Signs Temp Pulse Resp BP Pulse Ox 04/08/21 08:29 98 F 117 H 24 H 158/120 H 96 - Problem List (1) Nausea & vomiting SNOMED Code(s): 52350113 ICD Code: R11.2 - NAUSEA WITH VOMITING, UNSPECIFIED Status: Acute Priorit y: High Current Visit: Yes Qualifiers: Vomiting type: unspecified Vomiting Intractability: non-intractable Qualified Code(s): R11.2 - Nausea with vomiting, unspecified (2) Diarrhea SNOMED Code(s): 45286424 ICD Code: R19.7 - DIARRHEA, UNSPECIFIED Status: Acute Priority: High Current Visit: Yes Qualifiers: Diarrhea type: presumed infectious Qualified Code(s): R19.7 - Diarrhea, unspecified (3) Bacteria in urine SNOMED Code(s): 86421401 ICD Code: R82.71 - BACTERIURIA Status: Acute Priority: Medium Current Visit: Yes (4) Acute infective gastroenteritis SNOMED Code(s): 95674591 ICD Code: A09 - INFECTIOUS GASTROENTERITIS AND COLITIS, UNSPECIFIED Status: Chronic Priority: High Current Visit: Yes (5) Glomerulonephritis SNOMED Code(s): 89353145 ICD Code: N05.9 - UNSP NEPHRITIC SYNDROME WITH UNSPECIFIED MORPHOLOGIC CHANGES Status: Chronic Priority: High Current Visit: Yes (6) Immunocompromised due to corticosteroids SNOMED Code(s): 216743471 ICD Code: D84.821 - IMMUNODEFICIENCY DUE TO DRUGS; T38.0X5A - ADVERSE EFFECT OF GLUCOCORT/SYNTH ANALOG, INIT; Z79.52 - DIAMOND DRILLER (CURRENT) USE OF SYSTEMIC STEROIDS Status: Chronic Priority: High Current Visit: Yes (7) Lactic acidosis SNOMED Code(s): 71126282 ICD Code: E87.2 - ACIDOSIS Status: Resolved Priority: High Current Visit: Yes (8) Sepsis SNOMED Code(s): 34031191 ICD Code: A41.9 - SEPSIS, UNSPECIFIED ORGANISM Status: Acute Priority: High Current Visit: Yes Qualifiers: Sepsis type: sepsis due to unspecified organism Sepsis acute organ dysfunction status: with acute organ dysfunction Severe sepsis acute organ dysfunction type: unspecified Severe sepsis shock status: without septic shock Qualified Code(s): A41.9 - Sepsis, unspecified organism; R65.20 - Severe sepsis without septic shock Problem List Initiated/Reviewed/Updated: Yes Orders Last 24hrs: Active Orders 24 hr Category Date Time Status Admission Status [Patient Status] [ADT] Routine ADT 04/08/21 12:34 Active Nurse Communication: Isolation [RC] ASDIRECTED Care 04/08/21 13:08 Ordered BLOOD CULTURE [MREF] Stat Lab 04/08/21 09:20 Received BLOOD CULTURE [MREF] Stat Lab 04/08/21 09:30 Received FECAL LACTOFERRIN [MREF] Stat Lab 04/08/21 10:32 Received STOOL CULTURE/SHIGA TOXIN [MREF] Stat Lab 04/08/21 10:32 Received Dextrose 5%-Lactated Ringers 1,000 ml Med 04/08/21 08:45 Active IV ASDIRECTED Magnesium Sulfate/Water [Magnesium Sulfate in Water 2 Med 04/08/21 13:08 Ordered GM/50 ML] 2 gm Premix Bag 1 bag IV ONETIME Sodium Chloride 0.9% [Normal Saline] 1,000 ml Med 04/08/21 10:15 Active IV ASDIRECTED Sodium Chloride 0.9% [Saline Flush] Med 04/08/21 11:19 Active 10 ml FLUSH ONETIME PRN metroNIDAZOLE/Normal Saline [Flagyl in NS 500 MG/100 ML Med 04/08/21 13:15 Ordered ] 500 mg Premix Bag 1 bag IV Q8H Blood Culture x2 Reflex Set [OM.PC] Stat Oth 04/08/21 08:46 Ordered Isolation [COMM] Routine Oth 04/08/21 13:07 Ordered Medication Orders Dextrose/Lactated Ringer's (Dextrose 5%-Lactated Ringers) 1,000 mls @ 999 mls/hr IV ASDIRECTED [facility] Last Admin: 04/08/21 08:45 Dose: 999 mls/hr Documented by: CARLEYBLA Sodium Chloride (Normal Saline) 1,000 mls @ 250 mls/hr IV ASDIRECTED [facility] Last Admin: 04/08/21 10:30 Dose: 250 mls/hr Documented by: SANDBLA Magnesium Sulfate 2 gm/ Premix 50 mls @ 25 mls/hr IV ONETIME ONE Stop: 04/08/21 15:07 Sodium Chloride (Sodium Chloride 0.9% 10 Ml Syringe) 10 ml FLUSH ONETIME PRN PRN Reason: IV FLUSH Last Admin: 04/08/21 11:27 Dose: 10 ml Documented by: JORGE L Assessment/Plan Comment:: Assessment - day of admission 04/08/2021 * 30-year-old female who presents to our ER via [place] [facility] with nausea, vomiting, and diarrhea. 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 She is chronically immunocompromised. * Patient resides in [place] but has been working in the [place] for local [employer] * Started to feel ill yesterday around suppertime * Has been mostly eating fast food, but nothing has been questionable * Had [employer] for lunch and [employer] for supper * Started to feel nausea and vomiting this morning around 3 AM. Emesis was bilious and there was no blood * Then she developed diffuse abdominal pain and cramping along with yellow diarrhea * Was chilled and was noted to have a fever by paramedics * Denies any recent swimming or intake of questionable water * Denies any prior abdominal surgery * She does have underlying glomerular nephropathy which was diagnosed in 2004 * She has been unable to keep any of her medications down * Has been vaccinated for COVID-19. * Labs are obtained showing * WBC of 15.14 * Hemoglobin 13.6 * Hematocrit 41.9 * She is macrocytic * Platelets 264,000 * Neutrophils are elevated at 87.8% * Sodium 139 * Potassium 3.7 * Chloride 104 * Carbon dioxide 23 * Anion gap 15.7 * BUN is 21. Creatinine 1.2. GFR 52 * Glucose 135 * Calcium 8.0 * Magnesium 1.5 * Bilirubin 0.4 * AST is 25, ALT 27, alkaline phosphatase 18 * CRP is 2.4 * Protein is 6.1 * Albumin is 3.0 * Influenza a and B are negative * SARS-CoV-2 RNA is negative * Lactic acid is 3.0. Repeat lactic acid is 1.0. * UA is obtained and shows 2+ protein, 1+ occult blood, trace glucose, trace leukocyte esterase, moderate bacteria. * C. difficile is negative. * She is given Dilaudid and Tylenol for pain. She is given a D5LR bolus and started on IV fluids. She is given 100 mg IV push cortisone. She is also given Zofran and metoclopramide for nausea. * Abdominal x-ray is obtained showing incidental findings and nothing acute. * Abdominal CT is obtained showing: * 1.) bowel wall thickening within the distal ileum this either represents gastroenteritis although inflammatory bowel disease (Crohn's disease) needs to be considered. * 2.) There is free fluid in the pelvis which could relate ileal problems as well as being physiologic. * 3.) Other findings which are nonacute as described above. * Subsequently admitted to the medical floor for management and further work-up of her gastroenteritis. * Sepsis screen: * Leukocytosis, Tachycardia, and tachypnea in ED. Suspected bacterial infection. Lactic acidosis. * Patient meets sepsis criteria * Blood cultures obtained, Rocephin started in ED. Repeat Lactic acid in ED WNL PLAN Acute infective gastroenteritis Nausea & vomiting Diarrhea Lactic acidosis - resolved Sepsis * Stool culture pending * Antiemetics as ordered * Pain medications as ordered * Antipyretics as ordered * Monitor I&Os * IV fluids as ordered * Enteric precautions * Clear liquid diet for now * Monitor need for GI follow-up with concerns over Crohn's disease * Fecal lactoferrin pending * Blood cultures pending * 2 g IV Rocephin daily * Start metronidazole every 8 hours * Check serum ketones * Check TSH * Check qualitative hCG * Check procalcitonin Bacteria in urine * Urine culture * Denies any urinary symptoms and will be receiving antibiotics as above Glomerulonephritis Immunocompromised due to corticosteroids * Monitor labs * Avoid nephrotoxic meds if able * Continue home steroids * Patient reports follow-up scheduled with nephrology next month * Hold home Bactrim for now Code status: Full code PCP: None locally. Patient resides in [place] and was just going to establish with a new provider at the end of April. Will need appointment sooner. DVT prophylaxis: Not indicated Social: Resides in [place] with her . She is here in [place] for work. Disposition: Admitted to the medical surgical floor for IV rehydration, IV antibiotics, and further work-up regarding her gastroenteritis. Likely d ischarge in 2 to 3 days. - Mortality Measure Prognosis:: Good <Pavel Perez - Last Filed: 04/09/21 17:12> H&P History of Present Illness - General Admit Problem/Dx: Admission Diagnosis/Problem Admission Diagnosis/Problem Gastroenteritis Exam - Vital Signs Vital Signs: Last Vital Signs Temp 37.0 C 04/09/21 14:52 Pulse 88 04/09/21 14:52 Resp 16 04/09/21 14:52 BP 136/97 H 04/09/21 14:52 Pulse Ox 96 04/09/21 14:52 - Patient Data Lab Results Last 24 hrs: Laboratory Results - last 24 hr 04/08/21 04/09/21 04/09/21 Range/Units 08:52 05:53 05:53 WBC 6.99 (3.98-10.04) K/mm3 RBC 3.95 L (3.98-5.22) M/mm3 Hgb 12.1 D (11.2-15.7) gm/dl Hct 38.1 (34.1-44.9) % MCV 96.5 H (79.4-94.8) fl MCH 30.6 (25.6-32.2) pg MCHC 31.8 L (32.2-35.5) g/dl RDW Std Deviation 47.4 H (36.4-46.3) fL Plt Count 234 (182-369) K/mm3 MPV 9.5 (9.4-12.3) fl Neut % (Auto) 76.9 H (34.0-71.1) % Lymph % (Auto) 12.0 L (19.3-51.7) % [place] % (Auto) 9.2 (4.7-12.5) % Eos % (Auto) 0.9 (0.7-5.8) Baso % (Auto) 0.3 (0.1-1.2) % Neut # (Auto) 5.38 (1.56-6.13) K/mm3 Lymph # (Auto) 0.84 L (1.18-3.74) K/mm3 [place] # (Auto) 0.64 H (0.24-0.36) K/mm3 Eos # (Auto) 0.06 (0.04-0.36) K/mm3 Baso # (Auto) 0.02 (0.01-0.08) K/mm3 Sodium 141 (136-145) mEq/L Potassium 4.0 (3.5-5.1) mEq/L Chloride 107 (98-107) mEq/L Carbon Dioxide 26 (21-32) mEq/L Anion Gap 12.0 (5-15) BUN 12 (7-18) mg/dL Creatinine 1.0 (0.55-1.02) mg/dL Est Cr Clr Drug Dosing 70.39 mL/min Estimated GFR (MDRD) > 60 (>60) mL/min BUN/Creatinine Ratio 12.0 L (14-18) Glucose 88 (70-99) mg/dL Calcium 7.4 L (8.5-10.1) mg/dL Magnesium 2.0 (1.8-2.4) mg/dL Total Bilirubin 0.5 (0.2-1.0) mg/dL AST 30 (15-37) U/L ALT 27 (14-59) U/L Alkaline Phosphatase 15 L (46-116) U/L C-Reactive Protein 11.4 H* (<1.0) mg/dL Total Protein 5.3 L (6.4-8.2) g/dl Albumin 2.4 L (3.4-5.0) g/dl Globulin 2.9 gm/dL Albumin/Globulin Ratio 0.8 L (1-2) Procalcitonin 0.14 H ng/mL Result Diagrams: 04/09/21 05:53 04/09/21 05:53 Blaise Results Last 24 hrs: Microbiology 04/08/21 10:32 Urine Culture - Preliminary Urine 04/08/21 10:32 Stool Culture - Preliminary Stool / Feces Shiga Toxin I & II - Final 04/08/21 10:32 Stool Lactoferrin - Final Stool / Feces - Stool, Liquid Sepsis Event Note - Focused Exam Vital Signs: Vital Signs Temp Pulse Resp BP Pulse Ox 04/09/21 14:52 37.0 C 88 16 136/97 H 96 04/09/21 08:20 133/89 04/09/21 07:54 37.4 C 77 18 133/89 95 Orders Last 24hrs: Active Orders 24 hr Category Date Time Status Antiembolic Devices [RC] PER UNIT ROUTINE Care 04/09/21 09:41 Active Regular Diet [DIET] Diet 04/10/21 Breakfast Active Soft Diet [DIET] Diet 04/09/21 Lunch Active C-REACTIVE PROTEIN [CHEM] AM Lab 04/10/21 05:11 Ordered C-REACTIVE PROTEIN [CHEM] AM Lab 04/11/21 05:11 Ordered C-REACTIVE PROTEIN [CHEM] AM Lab 04/12/21 05:11 Ordered CBC WITH AUTO DIFF [HEME] AM Lab 04/10/21 05:11 Ordered CBC WITH AUTO DIFF [HEME] AM Lab 04/11/21 05:11 Ordered CBC WITH AUTO DIFF [HEME] AM Lab 04/12/21 05:11 Ordered COMPREHENSIVE METABOLIC PN,CMP [CHEM] AM Lab 04/10/21 05:11 Ordered COMPREHENSIVE METABOLIC PN,CMP [CHEM] AM Lab 04/11/21 05:11 Ordered COMPREHENSIVE METABOLIC PN,CMP [CHEM] AM Lab 04/12/21 05:11 Ordered MAGNESIUM [CHEM] AM Lab 04/10/21 05:11 Ordered MAGNESIUM [CHEM] AM Lab 04/11/21 05:11 Ordered MAGNESIUM [CHEM] AM Lab 04/12/21 05:11 Ordered cefTRIAXone [Rocephin] 2 gm Med 04/09/21 12:00 Active Sodium Chloride 0.9% [Normal Saline] 100 ml IV Q24H cycloSPORINE, Modified [Neoral] Med 04/08/21 21:00 Active 100 mg PO BID lisinopriL [Prinivil] Med 04/09/21 09:00 Active 40 mg PO DAILY predniSONE Med 04/09/21 09:00 Active 20 mg PO DAILY GORDON Hose [Antiembolic Hose] [OM.PC] Routine Oth 04/09/21 09:41 Ordered Medication Orders Acetaminophen (Acetaminophen 325 Mg Tab) 650 mg PO Q4H PRN PRN Reason: Pain (Mild 1-3)/fever Last Admin: 04/09/21 07:16 Dose: 650 mg Documented by: Admin: 04/08/21 21:52 Dose: 650 mg Documented by: HARJIT Cyclosporine (Modified) (Cyclosporine, Modified 100 Mg Cap) 100 mg PO BID [facility] Last Admin: 04/09/21 08:21 Dose: 100 mg Documented by: Admin: 04/08/21 20:38 Dose: 100 mg Documented by: HARJIT Hydromorphone HCl (Hydromorphone 0.5 Mg/0.5 Ml Syringe) 0.5 mg IVPUSH Q2H PRN PRN Reason: Pain (severe 7-10) Metronidazole 500 mg/ Premix 100 mls @ 100 mls/hr IV Q8H [facility] Last Admin: 04/09/21 12:59 Dose: 100 mls/hr Documented by: Infusion: 04/09/21 05:46 Dose: 100 mls/hr Documented by: Admin: 04/09/21 04:46 Dose: 100 mls/hr Documented by: Infusion: 04/08/21 21:35 Dose: 100 mls/hr Documented by: Admin: 04/08/21 20:35 Dose: 100 mls/hr Documented by: Infusion: 04/08/21 15:50 Dose: 100 mls/hr Documented by: Admin: 04/08/21 14:50 Dose: 100 mls/hr Documented by: LACHELLE Ceftriaxone Sodium 2 gm/ (Sodium Chloride) 100 mls @ 200 mls/hr IV Q24H [facility] Last Admin: 04/09/21 12:25 Dose: 200 mls/hr Documented by: MANUEL Lisinopril (Lisinopril 20 Mg Tab) 40 mg PO DAILY [facility] Last Admin: 04/09/21 08:20 Dose: 40 mg Documented by: MANUEL Ondansetron HCl (Ondansetron 4 Mg/2 Ml Sdv) 4 mg IV Q6H PRN PRN Reason: Nausea/Vomiting Oxycodone HCl (Oxycodone 5 Mg Tab) 5 mg PO Q4H PRN PRN Reason: Pain (moderate 4-6) Prednisone (Prednisone 20 Mg Tab) 20 mg PO DAILY [facility] Last Admin: 04/09/21 08:20 Dose: 20 mg Documented by: MANUEL Sodium Chloride (Sodium Chloride 0.9% 10 Ml Syringe) 10 ml FLUSH ONETIME PRN PRN Reason: IV FLUSH Last Admin: 04/08/21 11:27 Dose: 10 ml Documented by: JORGE L Assessment/Plan Comment:: I have seen and examined the patient independently of Mike Penaloza PA-C and have discussed the case with him. I have reviewed and agree with the orders and plan of care outlined by him. Please see orders.
[2021-04-08] MEDS: metroNIDAZOLE/Normal Saline 500 MG in Premix Bag 1 BAG IV SCH ×2 (14:50→20:35)
[2021-04-08] MEDS ORDERED: Ondansetron 4 MG/2 ML SDV IV PRN (15:48)
[2021-04-08] MEDS ORDERED: HYDROmorphone 0.5 MG/0.5 ML Syringe IVPUSH PRN (15:48)
[2021-04-08] MEDS ORDERED: oxyCODONE 5 MG Tab PO PRN (15:48)
[2021-04-08] MEDS: Lactated Ringers 1,000 ML IV SCH (16:49)
[2021-04-08] MEDS: Acetaminophen 325 MG Tab PO PRN (21:52)
[2021-04-09] MEDS: metroNIDAZOLE/Normal Saline 500 MG in Premix Bag 1 BAG IV SCH ×3 (04:46→21:21)
[2021-04-09] MEDS: Acetaminophen 325 MG Tab PO PRN ×2 (07:16→19:57)
--- NOTE | 2021-04-09 07:40 | PCM.PN ---
<Mike Penaloza - Last Filed: 04/09/21 09:41> - General Info Date of Service: 04/09/21 Admission Dx/Problem (Free Text): Admission Diagnosis/Problem Admission Diagnosis/Problem Gastroenteritis Functional Status: Reports: Pain Controlled, Tolerating Diet (clear liquid), Ambulating, Urinating. Denies: New Symptoms - Review of Systems General: Reports: No Symptoms. Denies: Fever, Weakness, Fatigue, Malaise, Chills HEENT: Reports: Headaches. Denies: Sore Throat Pulmonary: Reports: No Symptoms. Denies: Shortness of Breath, Cough, Sputum, Wheezing Cardiovascular: Reports: No Symptoms. Denies: Chest Pain, Palpitations, Dyspnea on Exertion, Edema Gastrointestinal: Reports: Abdominal Pain (chronic RUQ). Denies: Constipation, Diarrhea, Difficulty Swallowing, Hematochezia, Melena, Nausea, Vomiting Genitourinary: Reports: No Symptoms. Denies: Pain Musculoskeletal: Reports: No Symptoms Skin: Reports: No Symptoms. Denies: Cyanosis Neurological: Reports: No Symptoms. Denies: Confusion, Dizziness, Headache, Numbness, Pre-Existing Deficit, Syncope, Tingling, Difficulty Walking, Weakness, Gait Disturbance Psychiatric: Reports: No Symptoms - Patient Data Vitals - Most Recent: Last Vital Signs Temp 99.0 F 04/08/21 20:28 Pulse 90 04/08/21 20:28 Resp 14 04/08/21 20:28 BP 140/89 04/08/21 20:28 Pulse Ox 93 L 04/08/21 20:28 Weight - Most Recent: 71.577 kg I&O - Last 24 Hours: Intake & Output 04/08/21 04/09/21 04/09/21 22:59 06:59 14:59 Intake Total 363 1360 Output Total 925 8430 Balance -562 -390 Lab Results Last 24 Hours: Laboratory Results - last 24 hr 04/08/21 04/08/21 04/08/21 Range/Units 08:25 08:52 08:52 WBC 15.14 H (3.98-10.04) K/mm3 RBC 4.38 (3.98-5.22) M/mm3 Hgb 13.6 (11.2-15.7) gm/dl Hct 41.9 (34.1-44.9) % MCV 95.7 H (79.4-94.8) fl MCH 31.1 (25.6-32.2) pg MCHC 32.5 (32.2-35.5) g/dl RDW Std Deviation 47.4 H (36.4-46.3) fL Plt Count 264 (182-369) K/mm3 MPV 9.6 (9.4-12.3) fl Neut % (Auto) 87.8 H (34.0-71.1) % Lymph % (Auto) 5.6 L (19.3-51.7) % [place] % (Auto) 5.1 (4.7-12.5) % Eos % (Auto) 0.2 L (0.7-5.8) Baso % (Auto) 0.2 (0.1-1.2) % Neut # (Auto) 13.29 H (1.56-6.13) K/mm3 Lymph # (Auto) 0.85 L (1.18-3.74) K/mm3 [place] # (Auto) 0.77 H (0.24-0.36) K/mm3 Eos # (Auto) 0.03 L (0.04-0.36) K/mm3 Baso # (Auto) 0.03 (0.01-0.08) K/mm3 Manual Slide Review Normal smear Sodium 139 (136-145) mEq/L Potassium 3.7 (3.5-5.1) mEq/L Chloride 104 (98-107) mEq/L Carbon Dioxide 23 (21-32) mEq/L Anion Gap 15.7 H (5-15) BUN 21 H (7-18) mg/dL Creatinine 1.2 H (0.55-1.02) mg/dL Est Cr Clr Drug Dosing 61.12 mL/min Estimated GFR (MDRD) 52 (>60) mL/min BUN/Creatinine Ratio 17.5 (14-18) Glucose 135 H (70-99) mg/dL Lactic Acid (0.4-2.0) mmol/L Calcium 8.0 L (8.5-10.1) mg/dL Magnesium 1.5 L (1.8-2.4) mg/dL Total Bilirubin 0.4 (0.2-1.0) mg/dL AST 25 (15-37) U/L ALT 27 (14-59) U/L Alkaline Phosphatase 18 L (46-116) U/L C-Reactive Protein 2.4 H* (<1.0) mg/dL Total Protein 6.1 L (6.4-8.2) g/dl Albumin 3.0 L (3.4-5.0) g/dl Globulin 3.1 gm/dL Albumin/Globulin Ratio 1.0 (1-2) Lipase 177 (73-393) U/L TSH 3rd Generation (0.358-3.74) uIU/mL HCG, Qual (NEGATIVE) Urine Color (Yellow) Urine Appearance (Clear) Urine pH (5.0-8.0) Ur Specific [place] (1.005-1.030) Urine Protein (Negative) Urine Glucose (UA) (Negative) Urine Ketones (Negative) Urine Occult Blood (Negative) Urine Nitrite (Negative) Urine Bilirubin (Negative) Urine Urobilinogen (0.2-1.0) Ur Leukocyte Esterase (Negative) Urine RBC (0-5) /hpf Urine WBC (0-5) /hpf Ur Epithelial Cells (0-5) /hpf Urine Bacteria (FEW) /hpf Urine Mucus (FEW) /hpf Ketones (0.0-0.3) mM C.difficile 027-NAP1-B1 C. difficile Tox (PCR) Influenza Type A RNA Negative (NEGATIVE) Influenza Type B RNA Negative (NEGATIVE) SARS-CoV-2 RNA (TWAN) Negative (NEGATIVE) 04/08/21 04/08/21 04/08/21 Range/Units 08:52 08:52 08:52 WBC (3.98-10.04) K/mm3 RBC (3.98-5.22) M/mm3 Hgb (11.2-15.7) gm/dl Hct (34.1-44.9) % MCV (79.4-94.8) fl MCH (25.6-32.2) pg MCHC (32.2-35.5) g/dl RDW Std Deviation (36.4-46.3) fL Plt Count (182-369) K/mm3 MPV (9.4-12.3) fl Neut % (Auto) (34.0-71.1) % Lymph % (Auto) (19.3-51.7) % [place] % (Auto) (4.7-12.5) % Eos % (Auto) (0.7-5.8) Baso % (Auto) (0.1-1.2) % Neut # (Auto) (1.56-6.13) K/mm3 Lymph # (Auto) (1.18-3.74) K/mm3 [place] # (Auto) (0.24-0.36) K/mm3 Eos # (Auto) (0.04-0.36) K/mm3 Baso # (Auto) (0.01-0.08) K/mm3 Manual Slide Review Sodium (136-145) mEq/L Potassium (3.5-5.1) mEq/L Chloride (98-107) mEq/L Carbon Dioxide (21-32) mEq/L Anion Gap (5-15) BUN (7-18) mg/dL Creatinine (0.55-1.02) mg/dL Est Cr Clr Drug Dosing mL/min Estimated GFR (MDRD) (>60) mL/min BUN/Creatinine Ratio (14-18) Glucose (70-99) mg/dL Lactic Acid (0.4-2.0) mmol/L Calcium (8.5-10.1) mg/dL Magnesium (1.8-2.4) mg/dL Total Bilirubin (0.2-1.0) mg/dL AST (15-37) U/L ALT (14-59) U/L Alkaline Phosphatase (46-116) U/L C-Reactive Protein (<1.0) mg/dL Total Protein (6.4-8.2) g/dl Albumin (3.4-5.0) g/dl Globulin gm/dL Albumin/Globulin Ratio (1-2) Lipase (73-393) U/L TSH 3rd Generation 1.540 (0.358-3.74) uIU/mL HCG, Qual Negative (NEGATIVE) Urine Color (Yellow) Urine Appearance (Clear) Urine pH (5.0-8.0) Ur Specific [place] (1.005-1.030) Urine Protein (Negative) Urine Glucose (UA) (Negative) Urine Ketones (Negative) Urine Occult Blood (Negative) Urine Nitrite (Negative) Urine Bilirubin (Negative) Urine Urobilinogen (0.2-1.0) Ur Leukocyte Esterase (Negative) Urine RBC (0-5) /hpf Urine WBC (0-5) /hpf Ur Epithelial Cells (0-5) /hpf Urine Bacteria (FEW) /hpf Urine Mucus (FEW) /hpf Ketones 0.27 (0.0-0.3) mM C.difficile 027-NAP1-B1 C. difficile Tox (PCR) Influenza Type A RNA (NEGATIVE) Influenza Type B RNA (NEGATIVE) SARS-CoV-2 RNA (TWAN) (NEGATIVE) 04/08/21 04/08/21 04/08/21 Range/Units 09:30 10:32 10:35 WBC (3.98-10.04) K/mm3 RBC (3.98-5.22) M/mm3 Hgb (11.2-15.7) gm/dl Hct (34.1-44.9) % MCV (79.4-94.8) fl MCH (25.6-32.2) pg MCHC (32.2-35.5) g/dl RDW Std Deviation (36.4-46.3) fL Plt Count (182-369) K/mm3 MPV (9.4-12.3) fl Neut % (Auto) (34.0-71.1) % Lymph % (Auto) (19.3-51.7) % [place] % (Auto) (4.7-12.5) % Eos % (Auto) (0.7-5.8) Baso % (Auto) (0.1-1.2) % Neut # (Auto) (1.56-6.13) K/mm3 Lymph # (Auto) (1.18-3.74) K/mm3 [place] # (Auto) (0.24-0.36) K/mm3 Eos # (Auto) (0.04-0.36) K/mm3 Baso # (Auto) (0.01-0.08) K/mm3 Manual Slide Review Sodium (136-145) mEq/L Potassium (3.5-5.1) mEq/L Chloride (98-107) mEq/L Carbon Dioxide (21-32) mEq/L Anion Gap (5-15) BUN (7-18) mg/dL Creatinine (0.55-1.02) mg/dL Est Cr Clr Drug Dosing mL/min Estimated GFR (MDRD) (>60) mL/min BUN/Creatinine Ratio (14-18) Glucose (70-99) mg/dL Lactic Acid 3.0 H* (0.4-2.0) mmol/L Calcium (8.5-10.1) mg/dL Magnesium (1.8-2.4) mg/dL Total Bilirubin (0.2-1.0) mg/dL AST (15-37) U/L ALT (14-59) U/L Alkaline Phosphatase (46-116) U/L C-Reactive Protein (<1.0) mg/dL Total Protein (6.4-8.2) g/dl Albumin (3.4-5.0) g/dl Globulin gm/dL Albumin/Globulin Ratio (1-2) Lipase (73-393) U/L TSH 3rd Generation (0.358-3.74) uIU/mL HCG, Qual (NEGATIVE) Urine Color Yellow (Yellow) Urine Appearance Clear (Clear) Urine pH 6.5 (5.0-8.0) Ur Specific [place] 1.025 (1.005-1.030) Urine Protein 2+ H (Negative) Urine Glucose (UA) Trace H (Negative) Urine Ketones Negative (Negative) Urine Occult Blood 1+ H (Negative) Urine Nitrite Negative (Negative) Urine Bilirubin Negative (Negative) Urine Urobilinogen 0.2 (0.2-1.0) Ur Leukocyte Esterase Trace H (Negative) Urine RBC 5-10 H (0-5) /hpf Urine WBC 0-5 (0-5) /hpf Ur Epithelial Cells 0-5 (0-5) /hpf Urine Bacteria Moderate H (FEW) /hpf Urine Mucus Few (FEW) /hpf Ketones (0.0-0.3) mM C.difficile 027-NAP1-B1 Presumptive negative C. difficile Tox (PCR) Negative Influenza Type A RNA (NEGATIVE) Influenza Type B RNA (NEGATIVE) SARS-CoV-2 RNA (TWAN) (NEGATIVE) 04/08/21 04/09/21 04/09/21 Range/Units 12:10 05:53 05:53 WBC 6.99 (3.98-10.04) K/mm3 RBC 3.95 L (3.98-5.22) M/mm3 Hgb 12.1 D (11.2-15.7) gm/dl Hct 38.1 (34.1-44.9) % MCV 96.5 H (79.4-94.8) fl MCH 30.6 (25.6-32.2) pg MCHC 31.8 L (32.2-35.5) g/dl RDW Std Deviation 47.4 H (36.4-46.3) fL Plt Count 234 (182-369) K/mm3 MPV 9.5 (9.4-12.3) fl Neut % (Auto) 76.9 H (34.0-71.1) % Lymph % (Auto) 12.0 L (19.3-51.7) % [place] % (Auto) 9.2 (4.7-12.5) % Eos % (Auto) 0.9 (0.7-5.8) Baso % (Auto) 0.3 (0.1-1.2) % Neut # (Auto) 5.38 (1.56-6.13) K/mm3 Lymph # (Auto) 0.84 L (1.18-3.74) K/mm3 [place] # (Auto) 0.64 H (0.24-0.36) K/mm3 Eos # (Auto) 0.06 (0.04-0.36) K/mm3 Baso # (Auto) 0.02 (0.01-0.08) K/mm3 Manual Slide Review Sodium 141 (136-145) mEq/L Potassium 4.0 (3.5-5.1) mEq/L Chloride 107 (98-107) mEq/L Carbon Dioxide 26 (21-32) mEq/L Anion Gap 12.0 (5-15) BUN 12 (7-18) mg/dL Creatinine 1.0 (0.55-1.02) mg/dL Est Cr Clr Drug Dosing 70.39 mL/min Estimated GFR (MDRD) > 60 (>60) mL/min BUN/Creatinine Ratio 12.0 L (14-18) Glucose 88 (70-99) mg/dL Lactic Acid 1.0 (0.4-2.0) mmol/L Calcium 7.4 L (8.5-10.1) mg/dL Magnesium 2.0 (1.8-2.4) mg/dL Total Bilirubin 0.5 (0.2-1.0) mg/dL AST 30 (15-37) U/L ALT 27 (14-59) U/L Alkaline Phosphatase 15 L (46-116) U/L C-Reactive Protein 11.4 H* (<1.0) mg/dL Total Protein 5.3 L (6.4-8.2) g/dl Albumin 2.4 L (3.4-5.0) g/dl Globulin 2.9 gm/dL Albumin/Globulin Ratio 0.8 L (1-2) Lipase (73-393) U/L TSH 3rd Generation (0.358-3.74) uIU/mL HCG, Qual (NEGATIVE) Urine Color (Yellow) Urine Appearance (Clear) Urine pH (5.0-8.0) Ur Specific [place] (1.005-1.030) Urine Protein (Negative) Urine Glucose (UA) (Negative) Urine Ketones (Negative) Urine Occult Blood (Negative) Urine Nitrite (Negative) Urine Bilirubin (Negative) Urine Urobilinogen (0.2-1.0) Ur Leukocyte Esterase (Negative) Urine RBC (0-5) /hpf Urine WBC (0-5) /hpf Ur Epithelial Cells (0-5) /hpf Urine Bacteria (FEW) /hpf Urine Mucus (FEW) /hpf Ketones (0.0-0.3) mM C.difficile 027-NAP1-B1 C. difficile Tox (PCR) Influenza Type A RNA (NEGATIVE) Influenza Type B RNA (NEGATIVE) SARS-CoV-2 RNA (TWAN) (NEGATIVE) Blaise Results Last 24 Hours: Microbiology 04/08/21 10:32 Stool Lactoferrin - Final Stool / Feces - Stool, Liquid Med Orders - Current: Current Medications Acetaminophen (Acetaminophen 325 Mg Tab) 650 mg PO Q4H PRN PRN Reason: Pain (Mild 1-3)/fever Last Admin: 04/09/21 07:16 Dose: 650 mg Documented by: Cyclosporine (Modified) (Cyclosporine, Modified 100 Mg Cap) 100 mg PO BID DARON Last Admin: 04/08/21 20:38 Dose: 100 mg Documented by: Hydromorphone HCl (Hydromorphone 0.5 Mg/0.5 Ml Syringe) 0.5 mg IVPUSH Q2H PRN PRN Reason: Pain (severe 7-10) Metronidazole 500 mg/ Premix 100 mls @ 100 mls/hr IV Q8H [facility] Last Admin: 04/09/21 04:46 Dose: 100 mls/hr Documented by: Ceftriaxone Sodium 2 gm/ (Sodium Chloride) 100 mls @ 200 mls/hr IV Q24H [facility] Lactated Ringer's (Ringers, Lactated) 1,000 mls @ 75 mls/hr IV ASDIRECTED [facility] Last Admin: 04/08/21 16:49 Dose: 75 mls/hr Documented by: Lisinopril (Lisinopril 20 Mg Tab) 40 mg PO DAILY [facility] Ondansetron HCl (Ondansetron 4 Mg/2 Ml Sdv) 4 mg IV Q6H PRN PRN Reason: Nausea/Vomiting Oxycodone HCl (Oxycodone 5 Mg Tab) 5 mg PO Q4H PRN PRN Reason: Pain (moderate 4-6) Prednisone (Prednisone 20 Mg Tab) 20 mg PO DAILY [facility] Sodium Chloride (Sodium Chloride 0.9% 10 Ml Syringe) 10 ml FLUSH ONETIME PRN PRN Reason: IV FLUSH Last Admin: 04/08/21 11:27 Dose: 10 ml Documented by: Discontinued Medications Acetaminophen (Acetaminophen 325 Mg Tab) 975 mg PO ONETIME ONE Stop: 04/08/21 10:49 Last Admin: 04/08/21 12:23 Dose: 975 mg Documented by: Hydrocortisone Sodium Succinate (Hydrocortisone Sodium Succinate 100 Mg/2 Ml Sdv) 100 mg IVPUSH ONETIME ONE Stop: 04/08/21 08:52 Last Admin: 04/08/21 10:31 Dose: 100 mg Documented by: Hydromorphone HCl (Hydromorphone 0.5 Mg/0.5 Ml Syringe) 0.5 mg IVPUSH ONETIME ONE Stop: 04/08/21 08:37 Last Admin: 04/08/21 08:45 Dose: 0.5 mg Documented by: Hydromorphone HCl (Hydromorphone 0.5 Mg/0.5 Ml Syringe) 0.5 mg IVPUSH ONETIME ONE Stop: 04/08/21 10:17 Last Admin: 04/08/21 10:31 Dose: 0.5 mg Documented by: Dextrose/Lactated Ringer's (Dextrose 5%-Lactated Ringers) 1,000 mls @ 999 mls/hr IV ASDIRECTED [facility] Last Admin: 04/08/21 08:45 Dose: 999 mls/hr Documented by: Sodium Chloride (Normal Saline) 1,000 mls @ 250 mls/hr IV ASDIRECTED [facility]ARON Last Admin: 04/08/21 10:30 Dose: 250 mls/hr Documented by: Ceftriaxone Sodium 2 gm/ (Sodium Chloride) 100 mls @ 200 mls/hr IV ONETIME ONE Stop: 04/08/21 12:53 Last Admin: 04/08/21 12:59 Dose: 200 mls/hr Documented by: Magnesium Sulfate 2 gm/ Premix 50 mls @ 25 mls/hr IV ONETIME ONE Stop: 04/08/21 15:07 Last Admin: 04/08/21 14:50 Dose: 25 mls/hr Documented by: Iopamidol (Iopamidol 612 Mg/Ml 100 Ml Bottle) 100 ml IVPUSH ONETIME ONE Stop: 04/08/21 11:20 Last Admin: 04/08/21 11:27 Dose: 100 ml Documented by: Metoclopramide HCl (Metoclopramide 10 Mg/2 Ml Sdv) 7.5 mg IVPUSH ONETIME ONE Stop: 04/08/21 08:37 Last Admin: 04/08/21 08:45 Dose: 7.5 mg Documented by: Ondansetron HCl (Ondansetron 4 Mg/2 Ml Sdv) 4 mg IVPUSH ONETIME ONE Stop: 04/08/21 10:17 Last Admin: 04/08/21 10:30 Dose: 4 mg Documented by: - Exam Quality Assessment: DVT Prophylaxis (GORDON villegas ). No: Supplemental Oxygen, Urine Catheter General: Alert, Oriented, Cooperative, No Acute Distress HEENT: Pupils Equal, Pupils Reactive, Mucous Membr. Moist/[place] Neck: Supple, Trachea Midline Lungs: Clear to Auscultation, Normal Respiratory Effort Cardiovascular: Regular Rate, Regular Rhythm GI/Abdominal Exam: Soft, No Distention, Distended, Tender (mild uper right quadrant - chronic), Abnormal Bowel Sounds (hyperactive ). No: Guarding, Rigid, Rebound (Female) Exam: Deferred Back Exam: Normal Inspection, Full Range of Motion Extremities: Normal Inspection, Normal Range of Motion, Non-Tender, No Pedal Edema, Normal Capillary Refill Peripheral Pulses: 2+: Radial (L), Radial (R), Dorsalis Pedis (L), Dorsalis Pedis (R) Skin: Warm, Dry, Intact Neurological: No New Focal Deficit Psy/Mental Status: Alert, Normal Affect, Normal Mood - Patient Data Lab Results Last 24 hrs: Laboratory Results - last 24 hr 04/08/21 04/08/21 04/08/21 Range/Units 08:25 08:52 08:52 WBC 15.14 H (3.98-10.04) K/mm3 RBC 4.38 (3.98-5.22) M/mm3 Hgb 13.6 (11.2-15.7) gm/dl Hct 41.9 (34.1-44.9) % MCV 95.7 H (79.4-94.8) fl MCH 31.1 (25.6-32.2) pg MCHC 32.5 (32.2-35.5) g/dl RDW Std Deviation 47.4 H (36.4-46.3) fL Plt Count 264 (182-369) K/mm3 MPV 9.6 (9.4-12.3) fl Neut % (Auto) 87.8 H (34.0-71.1) % Lymph % (Auto) 5.6 L (19.3-51.7) % [place] % (Auto) 5.1 (4.7-12.5) % Eos % (Auto) 0.2 L (0.7-5.8) Baso % (Auto) 0.2 (0.1-1.2) % Neut # (Auto) 13.29 H (1.56-6.13) K/mm3 Lymph # (Auto) 0.85 L (1.18-3.74) K/mm3 [place] # (Auto) 0.77 H (0.24-0.36) K/mm3 Eos # (Auto) 0.03 L (0.04-0.36) K/mm3 Baso # (Auto) 0.03 (0.01-0.08) K/mm3 Manual Slide Review Normal smear Sodium 139 (136-145) mEq/L Potassium 3.7 (3.5-5.1) mEq/L Chloride 104 (98-107) mEq/L Carbon Dioxide 23 (21-32) mEq/L Anion Gap 15.7 H (5-15) BUN 21 H (7-18) mg/dL Creatinine 1.2 H (0.55-1.02) mg/dL Est Cr Clr Drug Dosing 61.12 mL/min Estimated GFR (MDRD) 52 (>60) mL/min BUN/Creatinine Ratio 17.5 (14-18) Glucose 135 H (70-99) mg/dL Lactic Acid (0.4-2.0) mmol/L Calcium 8.0 L (8.5-10.1) mg/dL Magnesium 1.5 L (1.8-2.4) mg/dL Total Bilirubin 0.4 (0.2-1.0) mg/dL AST 25 (15-37) U/L ALT 27 (14-59) U/L Alkaline Phosphatase 18 L (46-116) U/L C-Reactive Protein 2.4 H* (<1.0) mg/dL Total Protein 6.1 L (6.4-8.2) g/dl Albumin 3.0 L (3.4-5.0) g/dl Globulin 3.1 gm/dL Albumin/Globulin Ratio 1.0 (1-2) Lipase 177 (73-393) U/L TSH 3rd Generation (0.358-3.74) uIU/mL HCG, Qual (NEGATIVE) Urine Color (Yellow) Urine Appearance (Clear) Urine pH (5.0-8.0) Ur Specific [place] (1.005-1.030) Urine Protein (Negative) Urine Glucose (UA) (Negative) Urine Ketones (Negative) Urine Occult Blood (Negative) Urine Nitrite (Negative) Urine Bilirubin (Negative) Urine Urobilinogen (0.2-1.0) Ur Leukocyte Esterase (Negative) Urine RBC (0-5) /hpf Urine WBC (0-5) /hpf Ur Epithelial Cells (0-5) /hpf Urine Bacteria (FEW) /hpf Urine Mucus (FEW) /hpf Ketones (0.0-0.3) mM C.difficile 027-NAP1-B1 C. difficile Tox (PCR) Influenza Type A RNA Negative (NEGATIVE) Influenza Type B RNA Negative (NEGATIVE) SARS-CoV-2 RNA (TWAN) Negative (NEGATIVE) 04/08/21 04/08/21 04/08/21 Range/Units 08:52 08:52 08:52 WBC (3.98-10.04) K/mm3 RBC (3.98-5.22) M/mm3 Hgb (11.2-15.7) gm/dl Hct (34.1-44.9) % MCV (79.4-94.8) fl MCH (25.6-32.2) pg MCHC (32.2-35.5) g/dl RDW Std Deviation (36.4-46.3) fL Plt Count (182-369) K/mm3 MPV (9.4-12.3) fl Neut % (Auto) (34.0-71.1) % Lymph % (Auto) (19.3-51.7) % [place] % (Auto) (4.7-12.5) % Eos % (Auto) (0.7-5.8) Baso % (Auto) (0.1-1.2) % Neut # (Auto) (1.56-6.13) K/mm3 Lymph # (Auto) (1.18-3.74) K/mm3 [place] # (Auto) (0.24-0.36) K/mm3 Eos # (Auto) (0.04-0.36) K/mm3 Baso # (Auto) (0.01-0.08) K/mm3 Manual Slide Review Sodium (136-145) mEq/L Potassium (3.5-5.1) mEq/L Chloride (98-107) mEq/L Carbon Dioxide (21-32) mEq/L Anion Gap (5-15) BUN (7-18) mg/dL Creatinine (0.55-1.02) mg/dL Est Cr Clr Drug Dosing mL/min Estimated GFR (MDRD) (>60) mL/min BUN/Creatinine Ratio (14-18) Glucose (70-99) mg/dL Lactic Acid (0.4-2.0) mmol/L Calcium (8.5-10.1) mg/dL Magnesium (1.8-2.4) mg/dL Total Bilirubin (0.2-1.0) mg/dL AST (15-37) U/L ALT (14-59) U/L Alkaline Phosphatase (46-116) U/L C-Reactive Protein (<1.0) mg/dL Total Protein (6.4-8.2) g/dl Albumin (3.4-5.0) g/dl Globulin gm/dL Albumin/Globulin Ratio (1-2) Lipase (73-393) U/L TSH 3rd Generation 1.540 (0.358-3.74) uIU/mL HCG, Qual Negative (NEGATIVE) Urine Color (Yellow) Urine Appearance (Clear) Urine pH (5.0-8.0) Ur Specific [place] (1.005-1.030) Urine Protein (Negative) Urine Glucose (UA) (Negative) Urine Ketones (Negative) Urine Occult Blood (Negative) Urine Nitrite (Negative) Urine Bilirubin (Negative) Urine Urobilinogen (0.2-1.0) Ur Leukocyte Esterase (Negative) Urine RBC (0-5) /hpf Urine WBC (0-5) /hpf Ur Epithelial Cells (0-5) /hpf Urine Bacteria (FEW) /hpf Urine Mucus (FEW) /hpf Ketones 0.27 (0.0-0.3) mM C.difficile 027-NAP1-B1 C. difficile Tox (PCR) Influenza Type A RNA (NEGATIVE) Influenza Type B RNA (NEGATIVE) SARS-CoV-2 RNA (TWAN) (NEGATIVE) 04/08/21 04/08/21 04/08/21 Range/Units 09:30 10:32 10:35 WBC (3.98-10.04) K/mm3 RBC (3.98-5.22) M/mm3 Hgb (11.2-15.7) gm/dl Hct (34.1-44.9) % MCV (79.4-94.8) fl MCH (25.6-32.2) pg MCHC (32.2-35.5) g/dl RDW Std Deviation (36.4-46.3) fL Plt Count (182-369) K/mm3 MPV (9.4-12.3) fl Neut % (Auto) (34.0-71.1) % Lymph % (Auto) (19.3-51.7) % [place] % (Auto) (4.7-12.5) % Eos % (Auto) (0.7-5.8) Baso % (Auto) (0.1-1.2) % Neut # (Auto) (1.56-6.13) K/mm3 Lymph # (Auto) (1.18-3.74) K/mm3 [place] # (Auto) (0.24-0.36) K/mm3 Eos # (Auto) (0.04-0.36) K/mm3 Baso # (Auto) (0.01-0.08) K/mm3 Manual Slide Review Sodium (136-145) mEq/L Potassium (3.5-5.1) mEq/L Chloride (98-107) mEq/L Carbon Dioxide (21-32) mEq/L Anion Gap (5-15) BUN (7-18) mg/dL Creatinine (0.55-1.02) mg/dL Est Cr Clr Drug Dosing mL/min Estimated GFR (MDRD) (>60) mL/min BUN/Creatinine Ratio (14-18) Glucose (70-99) mg/dL Lactic Acid 3.0 H* (0.4-2.0) mmol/L Calcium (8.5-10.1) mg/dL Magnesium (1.8-2.4) mg/dL Total Bilirubin (0.2-1.0) mg/dL AST (15-37) U/L ALT (14-59) U/L Alkaline Phosphatase (46-116) U/L C-Reactive Protein (<1.0) mg/dL Total Protein (6.4-8.2) g/dl Albumin (3.4-5.0) g/dl Globulin gm/dL Albumin/Globulin Ratio (1-2) Lipase (73-393) U/L TSH 3rd Generation (0.358-3.74) uIU/mL HCG, Qual (NEGATIVE) Urine Color Yellow (Yellow) Urine Appearance Clear (Clear) Urine pH 6.5 (5.0-8.0) Ur Specific [place] 1.025 (1.005-1.030) Urine Protein 2+ H (Negative) Urine Glucose (UA) Trace H (Negative) Urine Ketones Negative (Negative) Urine Occult Blood 1+ H (Negative) Urine Nitrite Negative (Negative) Urine Bilirubin Negative (Negative) Urine Urobilinogen 0.2 (0.2-1.0) Ur Leukocyte Esterase Trace H (Negative) Urine RBC 5-10 H (0-5) /hpf Urine WBC 0-5 (0-5) /hpf Ur Epithelial Cells 0-5 (0-5) /hpf Urine Bacteria Moderate H (FEW) /hpf Urine Mucus Few (FEW) /hpf Ketones (0.0-0.3) mM C.difficile [id number] Presumptive negative C. difficile Tox (PCR) Negative Influenza Type A RNA (NEGATIVE) Influenza Type B RNA (NEGATIVE) SARS-CoV-2 RNA (TWAN) (NEGATIVE) 04/08/21 04/09/21 04/09/21 Range/Units 12:10 05:53 05:53 WBC 6.99 (3.98-10.04) K/mm3 RBC 3.95 L (3.98-5.22) M/mm3 Hgb 12.1 D (11.2-15.7) gm/dl Hct 38.1 (34.1-44.9) % MCV 96.5 H (79.4-94.8) fl MCH 30.6 (25.6-32.2) pg MCHC 31.8 L (32.2-35.5) g/dl RDW Std Deviation 47.4 H (36.4-46.3) fL Plt Count 234 (182-369) K/mm3 MPV 9.5 (9.4-12.3) fl Neut % (Auto) 76.9 H (34.0-71.1) % Lymph % (Auto) 12.0 L (19.3-51.7) % [place] % (Auto) 9.2 (4.7-12.5) % Eos % (Auto) 0.9 (0.7-5.8) Baso % (Auto) 0.3 (0.1-1.2) % Neut # (Auto) 5.38 (1.56-6.13) K/mm3 Lymph # (Auto) 0.84 L (1.18-3.74) K/mm3 [place] # (Auto) 0.64 H (0.24-0.36) K/mm3 Eos # (Auto) 0.06 (0.04-0.36) K/mm3 Baso # (Auto) 0.02 (0.01-0.08) K/mm3 Manual Slide Review Sodium 141 (136-145) mEq/L Potassium 4.0 (3.5-5.1) mEq/L Chloride 107 (98-107) mEq/L Carbon Dioxide 26 (21-32) mEq/L Anion Gap 12.0 (5-15) BUN 12 (7-18) mg/dL Creatinine 1.0 (0.55-1.02) mg/dL Est Cr Clr Drug Dosing 70.39 mL/min Estimated GFR (MDRD) > 60 (>60) mL/min BUN/Creatinine Ratio 12.0 L (14-18) Glucose 88 (70-99) mg/dL Lactic Acid 1.0 (0.4-2.0) mmol/L Calcium 7.4 L (8.5-10.1) mg/dL Magnesium 2.0 (1.8-2.4) mg/dL Total Bilirubin 0.5 (0.2-1.0) mg/dL AST 30 (15-37) U/L ALT 27 (14-59) U/L Alkaline Phosphatase 15 L (46-116) U/L C-Reactive Protein 11.4 H* (<1.0) mg/dL Total Protein 5.3 L (6.4-8.2) g/dl Albumin 2.4 L (3.4-5.0) g/dl Globulin 2.9 gm/dL Albumin/Globulin Ratio 0.8 L (1-2) Lipase (73-393) U/L TSH 3rd Generation (0.358-3.74) uIU/mL HCG, Qual (NEGATIVE) Urine Color (Yellow) Urine Appearance (Clear) Urine pH (5.0-8.0) Ur Specific [place] (1.005-1.030) Urine Protein (Negative) Urine Glucose (UA) (Negative) Urine Ketones (Negative) Urine Occult Blood (Negative) Urine Nitrite (Negative) Urine Bilirubin (Negative) Urine Urobilinogen (0.2-1.0) Ur Leukocyte Esterase (Negative) Urine RBC (0-5) /hpf Urine WBC (0-5) /hpf Ur Epithelial Cells (0-5) /hpf Urine Bacteria (FEW) /hpf Urine Mucus (FEW) /hpf Ketones (0.0-0.3) mM C.difficile [id number] C. difficile Tox (PCR) Influenza Type A RNA (NEGATIVE) Influenza Type B RNA (NEGATIVE) SARS-CoV-2 RNA (TWAN) (NEGATIVE) Result Diagrams: 04/09/21 05:53 04/09/21 05:53 [place] Results Last 24 hrs: Microbiology 04/08/21 10:32 Stool Lactoferrin - Final Stool / Feces - Stool, Liquid Sepsis Event Note - Evaluation Sepsis Screening Result: No Definite Risk - Focused Exam Vital Signs: Vital Signs Temp Pulse Resp BP Pulse Ox 04/08/21 20:28 99.0 F 90 14 140/89 93 L - Problem List & Annotations (1) Nausea & vomiting SNOMED Code(s): 80562182 Code(s): R11.2 - NAUSEA WITH VOMITING, UNSPECIFIED Status: Resolved Prior ity: High Current Visit: Yes Qualifiers: Vomiting type: unspecified Vomiting Intractability: non-intractable Qualified Code(s): R11.2 - Nausea with vomiting, unspecified (2) Diarrhea SNOMED Code(s): 61130102 Code(s): R19.7 - DIARRHEA, UNSPECIFIED Status: Resolved Priority: High Current Visit: Yes Qualifiers: Diarrhea type: presumed infectious Qualified Code(s): R19.7 - Diarrhea, unspecified (3) Bacteria in urine SNOMED Code(s): 17622534 Code(s): R82.71 - BACTERIURIA Status: Acute Priority: Medium Current Visit: Yes (4) Acute infective gastroenteritis SNOMED Code(s): 82539221 Code(s): A09 - INFECTIOUS GASTROENTERITIS AND COLITIS, UNSPECIFIED Status: Chronic Priority: High Current Visit: Yes (5) Glomerulonephritis SNOMED Code(s): 21335002 Code(s): N05.9 - UNSP NEPHRITIC SYNDROME WITH UNSPECIFIED MORPHOLOGIC CHANGES Status: Chronic Priority: High Current Visit: Yes (6) Immunocompromised due to corticosteroids SNOMED Code(s): 774438103 Code(s): D84.821 - IMMUNODEFICIENCY DUE TO DRUGS; T38.0X5A - ADVERSE EFFECT OF GLUCOCORT/SYNTH ANALOG, INIT; Z79.52 - [facility] (CURRENT) USE OF SYSTEMIC STEROIDS Status: Chronic Priority: High Current Visit: Yes (7) Lactic acidosis SNOMED Code(s): 59051288 Code(s): E87.2 - ACIDOSIS Status: Resolved Priority: High Current Visit: Yes (8) Sepsis SNOMED Code(s): 62231726 Code(s): A41.9 - SEPSIS, UNSPECIFIED ORGANISM Status: Resolved Priority: High Current Visit: Yes Qualifiers: Sepsis type: sepsis due to unspecified organism Sepsis acute organ dysfunction status: with acute organ dysfunction Severe sepsis acute organ dysfunction type: unspecified Severe sepsis shock status: without septic shock Qualified Code(s): A41.9 - Sepsis, unspecified organism; R65.20 - Severe sepsis without septic shock - Problem List Review Problem List Initiated/Reviewed/Updated: Yes - My Orders Last 24 Hours: My Active Orders 04/08/21 08:52 PROCALCITONIN [REF] Routine 04/08/21 10:32 CULTURE URINE [MREF] Routine 04/08/21 13:07 Isolation [COMM] Routine 04/08/21 13:30 metroNIDAZOLE/Normal Saline [Flagyl in NS 500 MG/100 ML] 500 mg Premix Bag 1 bag IV Q8H 04/08/21 15:48 Height and Weight [RC] 0600 Intake and Output [RC] 04,16 Oxygen Therapy [RC] ASDIRECTED Up ad Suzi [RC] BID Vital Signs [RC] Q6H Acetaminophen [TylenoL] 650 mg PO Q4H PRN HYDROmorphone [Dilaudid] 0.5 mg IVPUSH Q2H PRN Ondansetron [Zofran] 4 mg IV Q6H PRN oxyCODONE 5 mg PO Q4H PRN Resuscitation Status Routine 04/08/21 15:49 Pulse Oximetry [RC] PRN 04/08/21 16:00 Lactated Ringers [Ringers, Lactated] 1,000 ml IV ASDIRECTED 04/08/21 Dinner Clear Liquid Diet [DIET] 04/08/21 21:00 cycloSPORINE, Modified [Neoral] 100 mg PO BID 04/09/21 09:00 lisinopriL [Prinivil] 40 mg PO DAILY predniSONE 20 mg PO DAILY 04/09/21 12:00 cefTRIAXone [Rocephin] 2 gm Sodium Chloride 0.9% [Normal Saline] 100 ml IV Q24H 04/10/21 05:11 C-REACTIVE PROTEIN [CHEM] AM CBC WITH AUTO DIFF [HEME] AM COMPREHENSIVE METABOLIC PN,CMP [CHEM] AM MAGNESIUM [CHEM] AM 04/11/21 05:11 C-REACTIVE PROTEIN [CHEM] AM CBC WITH AUTO DIFF [HEME] AM COMPREHENSIVE METABOLIC PN,CMP [CHEM] AM MAGNESIUM [CHEM] AM 04/12/21 05:11 C-REACTIVE PROTEIN [CHEM] AM CBC WITH AUTO DIFF [HEME] AM COMPREHENSIVE METABOLIC PN,CMP [CHEM] AM MAGNESIUM [CHEM] AM - Assessment Assessment:: Assessment - day of admission 04/08/2021 * 30-year-old female who presents to our ER via [facility] with nausea, vomiting, and diarrhea. 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 She is chronically immunocompromised. * Patient resides in [place] but has been working in the [email or web address] area for local company * Started to feel ill yesterday around suppertime * Has been mostly eating fast food, but nothing has been questionable * Had [employer] for lunch and [employer] for supper * Started to feel nausea and vomiting this morning around 3 AM. Emesis was bilious and there was no blood * Then she developed diffuse abdominal pain and cramping along with yellow diarrhea * Was chilled and was noted to have a fever by paramedics * Denies any recent swimming or intake of questionable water * Denies any prior abdominal surgery * She does have underlying glomerular nephropathy which was diagnosed in 2004 * She has been unable to keep any of her medications down * Has been vaccinated for COVID-19. * Labs are obtained showing * WBC of 15.14 * Hemoglobin 13.6 * Hematocrit 41.9 * She is macrocytic * Platelets 264,000 * Neutrophils are elevated at 87.8% * Sodium 139 * Potassium 3.7 * Chloride 104 * Carbon dioxide 23 * Anion gap 15.7 * BUN is 21. Creatinine 1.2. GFR 52 * Glucose 135 * Calcium 8.0 * Magnesium 1.5 * Bilirubin 0.4 * AST is 25, ALT 27, alkaline phosphatase 18 * CRP is 2.4 * Protein is 6.1 * Albumin is 3.0 * Influenza a and B are negative * SARS-CoV-2 RNA is negative * Lactic acid is 3.0. Repeat lactic acid is 1.0. * UA is obtained and shows 2+ protein, 1+ occult blood, trace glucose, trace leukocyte esterase, moderate bacteria. * C. difficile is negative. * She is given Dilaudid and Tylenol for pain. She is given a D5LR bolus and started on IV fluids. She is given 100 mg IV push cortisone. She is also given Zofran and metoclopramide for nausea. * Abdominal x-ray is obtained showing incidental findings and nothing acute. * Abdominal CT is obtained showing: * 1.) bowel wall thickening within the distal ileum this either represents gastroenteritis although inflammatory bowel disease (Crohn's disease) needs to be considered. * 2.) There is free fluid in the pelvis which could relate ileal problems as well as being physiologic. * 3.) Other findings which are nonacute as described above. * Subsequently admitted to the medical floor for management and further work-up of her gastroenteritis. * Sepsis screen: * Leukocytosis, Tachycardia, and tachypnea in ED. Suspected bacterial infection. Lactic acidosis. * Patient meets sepsis criteria * Blood cultures obtained, Rocephin started in ED. Repeat Lactic acid in ED WNL 04/09/2021 30-year-old female admitted for intractable nausea, vomiting, and diarrhea. Since admission she has not had any diarrhea and her nausea has resolved. She has had no vomiting. She has been receiving IV fluids and these will be discontinued today. She has been eating clear liquid diet and tolerating this well. We will advance to soft diet. She reports a headache and chronic mild right upper quadrant abdominal pain but states she has a specialist consultation for this. Labs today show normal WBC of 16.99. Hemoglobin is 12.1. Hematocrit 38.1. She is macrocytic. Platelet 234,000. Neutrophils are elevated at 76.9%. Sodium 141. Potassium 4.0. Chloride 107. Carbon dioxide 26. Anion gap 12.0. BUN is 12, creatinine 1.0, GFR greater than 60. Glucose is 88. Calcium 7.4. Magnesium 2.0. Total bilirubin 0.5. AST 30, ALT 27, alkaline phosphatase 15. CRP is up to 11.4. Protein is 5.3. Albumin 2.4. Lipase checked yesterday was 177. TSH yesterday was 1.540. Qualitative hCG was negative. Serum ketones were 0.27. She will remain hospitalized today pending results of stool culture. Will work on advancing diet. Likely discharge tomorrow. - Plan Plan:: Acute infective gastroenteritis Nausea & vomiting, resolved Diarrhea, resolved Lactic acidosis, resolved Sepsis, resolved * Stool culture pending * Antiemetics as ordered * Pain medications as ordered * Antipyretics as ordered * Monitor I&Os * Discontinue IV fluids * Enteric precautions * Advance to soft diet * Monitor need for GI follow-up with concerns over Crohn's disease * Fecal lactoferrin negative * Blood cultures pending * 2 g IV Rocephin daily * Continue metronidazole every 8 hours * Serum ketones 0.27 * TSH WNL * Negative qualitative hCG * Procalcitonin pending Bacteria in urine * Urine culture pending * Denies any urinary symptoms and will be receiving antibiotics as above Glomerulonephritis Immunocompromised due to corticosteroids * Monitor labs * Avoid nephrotoxic meds if able * Continue home steroids * Patient reports follow-up scheduled with nephrology next month * Hold home Bactrim for now Code status: Full code PCP: None locally. Patient resides in [place] and was just going to establish with a new provider at the end of April. Will need appointment sooner. DVT prophylaxis: Not indicated Social: Resides in [place] with her . She is here in [email or web address] for work. Disposition: Admitted to the medical surgical floor for IV rehydration, IV antibiotics, and further work-up regarding her gastroenteritis. Likely discharge in 1 to 2 more days. <Pavel Perez - Last Filed: 04/09/21 17:12> - Patient Data Vitals - Most Recent: Last Vital Signs Temp 37.0 C 04/09/21 14:52 Pulse 88 04/09/21 14:52 Resp 16 04/09/21 14:52 BP 136/97 H 04/09/21 14:52 Pulse Ox 96 04/09/21 14:52 I&O - Last 24 Hours: Intake & Output 04/09/21 04/09/21 04/09/21 06:59 14:59 22:59 Intake Total 7024 400 1110 Output Total 1750 2050 Balance -390 520 -500 Lab Results Last 24 Hours: Laboratory Results - last 24 hr 04/08/21 04/09/21 04/09/21 Range/Units 08:52 05:53 05:53 WBC 6.99 (3.98-10.04) K/mm3 RBC 3.95 L (3.98-5.22) M/mm3 Hgb 12.1 D (11.2-15.7) gm/dl Hct 38.1 (34.1-44.9) % MCV 96.5 H (79.4-94.8) fl MCH 30.6 (25.6-32.2) pg MCHC 31.8 L (32.2-35.5) g/dl RDW Std Deviation 47.4 H (36.4-46.3) fL Plt Count 234 (182-369) K/mm3 MPV 9.5 (9.4-12.3) fl Neut % (Auto) 76.9 H (34.0-71.1) % Lymph % (Auto) 12.0 L (19.3-51.7) % [place] % (Auto) 9.2 (4.7-12.5) % Eos % (Auto) 0.9 (0.7-5.8) Baso % (Auto) 0.3 (0.1-1.2) % Neut # (Auto) 5.38 (1.56-6.13) K/mm3 Lymph # (Auto) 0.84 L (1.18-3.74) K/mm3 [place] # (Auto) 0.64 H (0.24-0.36) K/mm3 Eos # (Auto) 0.06 (0.04-0.36) K/mm3 Baso # (Auto) 0.02 (0.01-0.08) K/mm3 Sodium 141 (136-145) mEq/L Potassium 4.0 (3.5-5.1) mEq/L Chloride 107 (98-107) mEq/L Carbon Dioxide 26 (21-32) mEq/L Anion Gap 12.0 (5-15) BUN 12 (7-18) mg/dL Creatinine 1.0 (0.55-1.02) mg/dL Est Cr Clr Drug Dosing 70.39 mL/min Estimated GFR (MDRD) > 60 (>60) mL/min BUN/Creatinine Ratio 12.0 L (14-18) Glucose 88 (70-99) mg/dL Calcium 7.4 L (8.5-10.1) mg/dL Magnesium 2.0 (1.8-2.4) mg/dL Total Bilirubin 0.5 (0.2-1.0) mg/dL AST 30 (15-37) U/L ALT 27 (14-59) U/L Alkaline Phosphatase 15 L (46-116) U/L C-Reactive Protein 11.4 H* (<1.0) mg/dL Total Protein 5.3 L (6.4-8.2) g/dl Albumin 2.4 L (3.4-5.0) g/dl Globulin 2.9 gm/dL Albumin/Globulin Ratio 0.8 L (1-2) Procalcitonin 0.14 H ng/mL [facility] Results Last 24 Hours: Microbiology 04/08/21 10:32 Urine Culture - Preliminary Urine 04/08/21 10:32 Stool Culture - Preliminary Stool / Feces Shiga Toxin I & II - Final 04/08/21 10:32 Stool Lactoferrin - Final Stool / Feces - Stool, Liquid Med Orders - Current: Current Medications Acetaminophen (Acetaminophen 325 Mg Tab) 650 mg PO Q4H PRN PRN Reason: Pain (Mild 1-3)/fever Last Admin: 04/09/21 07:16 Dose: 650 mg Documented by: Cyclosporine (Modified) (Cyclosporine, Modified 100 Mg Cap) 100 mg PO BID [facility] Last Admin: 04/09/21 08:21 Dose: 100 mg Documented by: Hydromorphone HCl (Hydromorphone 0.5 Mg/0.5 Ml Syringe) 0.5 mg IVPUSH Q2H PRN PRN Reason: Pain (severe 7-10) Metronidazole 500 mg/ Premix 100 mls @ 100 mls/hr IV Q8H [facility] Last Admin: 04/09/21 12:59 Dose: 100 mls/hr Documented by: Ceftriaxone Sodium 2 gm/ (Sodium Chloride) 100 mls @ 200 mls/hr IV Q24H [facility] Last Admin: 04/09/21 12:25 Dose: 200 mls/hr Documented by: Lisinopril (Lisinopril 20 Mg Tab) 40 mg PO DAILY [facility] Last Admin: 04/09/21 08:20 Dose: 40 mg Documented by: Ondansetron HCl (Ondansetron 4 Mg/2 Ml Sdv) 4 mg IV Q6H PRN PRN Reason: Nausea/Vomiting Oxycodone HCl (Oxycodone 5 Mg Tab) 5 mg PO Q4H PRN PRN Reason: Pain (moderate 4-6) Prednisone (Prednisone 20 Mg Tab) 20 mg PO DAILY [facility] Last Admin: 04/09/21 08:20 Dose: 20 mg Documented by: Sodium Chloride (Sodium Chloride 0.9% 10 Ml Syringe) 10 ml FLUSH ONETIME PRN PRN Reason: IV FLUSH Last Admin: 04/08/21 11:27 Dose: 10 ml Documented by: Discontinued Medications Acetaminophen (Acetaminophen 325 Mg Tab) 975 mg PO ONETIME ONE Stop: 04/08/21 10:49 Last Admin: 04/08/21 12:23 Dose: 975 mg Documented by: Hydrocortisone Sodium Succinate (Hydrocortisone Sodium Succinate 100 Mg/2 Ml Sdv) 100 mg IVPUSH ONETIME ONE Stop: 04/08/21 08:52 Last Admin: 04/08/21 10:31 Dose: 100 mg Documented by: Hydromorphone HCl (Hydromorphone 0.5 Mg/0.5 Ml Syringe) 0.5 mg IVPUSH ONETIME ONE Stop: 04/08/21 08:37 Last Admin: 04/08/21 08:45 Dose: 0.5 mg Documented by: Hydromorphone HCl (Hydromorphone 0.5 Mg/0.5 Ml Syringe) 0.5 mg IVPUSH ONETIME ONE Stop: 04/08/21 10:17 Last Admin: 04/08/21 10:31 Dose: 0.5 mg Documented by: Dextrose/Lactated Ringer's (Dextrose 5%-Lactated Ringers) 1,000 mls @ [facility] Last Admin: 04/08/21 08:45 Dose: 999 mls/hr Documented by: Sodium Chloride (Normal Saline) 1,000 mls @ 250 mls/hr IV ASDIRECTED [facility] Last Admin: 04/08/21 10:30 Dose: 250 mls/hr Documented by: Ceftriaxone Sodium 2 gm/ (Sodium Chloride) 100 mls @ 200 mls/hr IV ONETIME ONE Stop: 04/08/21 12:53 Last Admin: 04/08/21 12:59 Dose: 200 mls/hr Documented by: Magnesium Sulfate 2 gm/ Premix 50 mls @ 25 mls/hr IV ONETIME ONE Stop: 04/08/21 15:07 Last Admin: 04/08/21 14:50 Dose: 25 mls/hr Documented by: Lactated Ringer's (Ringers, Lactated) 1,000 mls @ 75 mls/hr IV ASDIRECTED [facility] Last Admin: 04/09/21 08:24 Dose: 75 mls/hr Documented by: Iopamidol (Iopamidol 612 Mg/Ml 100 Ml Bottle) 100 ml IVPUSH ONETIME ONE Stop: 04/08/21 11:20 Last Admin: 04/08/21 11:27 Dose: 100 ml Documented by: Metoclopramide HCl (Metoclopramide 10 Mg/2 Ml Sdv) 7.5 mg IVPUSH ONETIME ONE Stop: 04/08/21 08:37 Last Admin: 04/08/21 08:45 Dose: 7.5 mg Documented by: Ondansetron HCl (Ondansetron 4 Mg/2 Ml Sdv) 4 mg IVPUSH ONETIME ONE Stop: 04/08/21 10:17 Last Admin: 04/08/21 10:30 Dose: 4 mg Documented by: - Patient Data Lab Results Last 24 hrs: Laboratory Results - last 24 hr 04/08/21 04/09/21 04/09/21 Range/Units 08:52 05:53 05:53 WBC 6.99 (3.98-10.04) K/mm3 RBC 3.95 L (3.98-5.22) M/mm3 Hgb 12.1 D (11.2-15.7) gm/dl Hct 38.1 (34.1-44.9) % MCV 96.5 H (79.4-94.8) fl MCH 30.6 (25.6-32.2) pg MCHC 31.8 L (32.2-35.5) g/dl RDW Std Deviation 47.4 H (36.4-46.3) fL Plt Count 234 (182-369) K/mm3 MPV 9.5 (9.4-12.3) fl Neut % (Auto) 76.9 H (34.0-71.1) % Lymph % (Auto) 12.0 L (19.3-51.7) % [place] % (Auto) 9.2 (4.7-12.5) % Eos % (Auto) 0.9 (0.7-5.8) Baso % (Auto) 0.3 (0.1-1.2) % Neut # (Auto) 5.38 (1.56-6.13) K/mm3 Lymph # (Auto) 0.84 L (1.18-3.74) K/mm3 [place] # (Auto) 0.64 H (0.24-0.36) K/mm3 Eos # (Auto) 0.06 (0.04-0.36) K/mm3 Baso # (Auto) 0.02 (0.01-0.08) K/mm3 Sodium 141 (136-145) mEq/L Potassium 4.0 (3.5-5.1) mEq/L Chloride 107 (98-107) mEq/L Carbon Dioxide 26 (21-32) mEq/L Anion Gap 12.0 (5-15) BUN 12 (7-18) mg/dL Creatinine 1.0 (0.55-1.02) mg/dL Est Cr Clr Drug Dosing 70.39 mL/min Estimated GFR (MDRD) > 60 (>60) mL/min BUN/Creatinine Ratio 12.0 L (14-18) Glucose 88 (70-99) mg/dL Calcium 7.4 L (8.5-10.1) mg/dL Magnesium 2.0 (1.8-2.4) mg/dL Total Bilirubin 0.5 (0.2-1.0) mg/dL AST 30 (15-37) U/L ALT 27 (14-59) U/L Alkaline Phosphatase 15 L (46-116) U/L C-Reactive Protein 11.4 H* (<1.0) mg/dL Total Protein 5.3 L (6.4-8.2) g/dl Albumin 2.4 L (3.4-5.0) g/dl Globulin 2.9 gm/dL Albumin/Globulin Ratio 0.8 L (1-2) Procalcitonin 0.14 H ng/mL Result Diagrams: 04/09/21 05:53 04/09/21 05:53 [facility] Results Last 24 hrs: Microbiology 04/08/21 10:32 Urine Culture - Preliminary Urine 04/08/21 10:32 Stool Culture - Preliminary Stool / Feces Shiga Toxin I & II - Final 04/08/21 10:32 Stool Lactoferrin - Final Stool / Feces - Stool, Liquid Sepsis Event Note - Focused Exam Vital Signs: Vital Signs Temp Pulse Resp BP Pulse Ox 04/09/21 14:52 37.0 C 88 16 136/97 H 96 04/09/21 08:20 133/89 04/09/21 07:54 37.4 C 77 18 133/89 95 - Free Text/Narrative Note: I have seen and examined the patient independently of Mike Penaloza PA-C and alvarez ve discussed the case with him. I have reviewed and agree with the orders and plan of care outlined by him. Please see orders.
[2021-04-09] MEDS: predniSONE 20 MG Tab PO SCH (08:20)
[2021-04-09] MEDS: Lisinopril 20 MG Tab PO SCH (08:20)
[2021-04-09] MEDS: Lactated Ringers 1,000 ML IV SCH (08:24)
[2021-04-09] MEDS ORDERED: cefTRIAXone 2 GM in Sodium Chloride 0.9% 100 ML IV SCH (12:00)
[2021-04-10] MEDS: metroNIDAZOLE/Normal Saline 500 MG in Premix Bag 1 BAG IV SCH (05:22)
[2021-04-10] MEDS: Acetaminophen 325 MG Tab PO PRN (05:30)
[2021-04-10] MEDS ORDERED: Magnesium Sulfate/Water 2 GM in Premix Bag 1 BAG IV ONE (08:16)
[2021-04-10] MEDS: Lisinopril 20 MG Tab PO SCH (08:22)
[2021-04-10] MEDS: predniSONE 20 MG Tab PO SCH (08:23)
--- NOTE | 2021-04-10 08:27 | PCM.DCSUM1 ---
<Mike Penaloza - Last Filed: 04/10/21 09:51> Discharge Summary - Hospital Course HPI Initial Comments: This is a 30-year-old female who presents to our ER on 04/08/2021 via [facility] with nausea, vomiting, and diarrhea. Patient resides in [place] but has been working in the [place] area for [employer]. She reports she started to feel ill yesterday around suppertime. She states she has been mostly eating fast food, but nothing has been questionable. She had [employer] for lunch and [employer] for supper. States she started to feel nausea and vomiting this morning around 3 AM. Emesis was bilious and there was no blood. She reports then she developed diffuse abdominal pain and cramping along with yellow diarrhea. States she was chilled and was noted to have a fever by paramedics. Denies any recent swimming or intake of questionable water. Denies any prior abdominal surgery. 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 She has been unable to keep any of her medications down. She has been vaccinated for COVID-19. In the ED temp was noted to be 36.6. Pulse 117. Blood pressure 158/120. Respirations 24. Pulse ox 96% on room air. Labs are obtained showing a WBC of 15.14. Hemoglobin 13.6. Hematocrit 41.9. She is macrocytic. Platelets 264,000. Neutrophils are elevated at 87.8%. Sodium 139. Potassium 3.7. Chloride 104. Carbon dioxide 23. Anion gap 15.7. BUN is 21. Creatinine 1.2. GFR 52. Glucose 135. Calcium 8.0. Magnesium 1.5. Bilirubin 0.4. AST is 25, ALT 27, alkaline phosphatase 18. CRP is 2.4. Protein is 6.1. Albumin is 3.0. Influenza a and B are negative. SARS-CoV-2 RNA is negative. Lactic acid is 3.0. Repeat lactic acid is 1.0. UA is obtained and shows 2+ protein, 1+ occult blood, trace glucose, trace leukocyte esterase, moderate bacteria. C. difficile is negative. She is given Dilaudid and Tylenol for pain. She is given a D5LR bolus and started on IV fluids. She is given 100 mg IV push cortisone. She is also given Zofran and metoclopramide for nausea. Abdominal x-ray is obtained showing incidental findings and nothing acute. Abdominal CT is obtained showing 1) bowel wall thickening within the distal ileum this either represents gastroenteritis although inflammatory bowel disease (Crohn's disease) needs to be considered. 2) There is free fluid in the pelvis which could relate ileal problems as well as being physiologic. 3.) Other findings which are nonacute as described above. 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 She is chronically immunocompromised. She reports she was just going to establish with a new provider in [place] but her appointment is the end of April. She sees a telephone appointment clerk out of [place]. She is a full code. She is subsequently admitted to the medical floor for management and further work-up of her gastroenteritis. Diagnosis: Stroke: No - Discharge Data Discharge Date: 04/10/21 (Admit date: 04/08/2021) Discharge Disposition: Home, Self-Care 01 Condition: Good - Referral to Home Health Primary Care Physician: PCP None - Discharge Diagnosis/Problem(s) (1) Nausea & vomiting SNOMED Code(s): 91310148 ICD Code: R11.2 - NAUSEA WITH VOMITING, UNSPECIFIED Status: Resolved Priority: High Qualifiers: Vomiting type: unspecified Vomiting Intractability: non-intractable Qualified Code(s): R11.2 - Nausea with vomiting, unspecified (2) Diarrhea SNOMED Code(s): 27441539 ICD Code: R19.7 - DIARRHEA, UNSPECIFIED Status: Acute Priority: High Qualifiers: Diarrhea type: unspecified type Qualified Code(s): R19.7 - Diarrhea, unspecified (3) Bacteria in urine SNOMED Code(s): 06137646 ICD Code: R82.71 - BACTERIURIA Status: Ruled-out Priority: Medium (4) Acute infective gastroenteritis SNOMED Code(s): 04780861 ICD Code: A09 - INFECTIOUS GASTROENTERITIS AND COLITIS, UNSPECIFIED Status: Ruled-out Priority: High (5) Glomerulonephritis SNOMED Code(s): 25733035 ICD Code: N05.9 - UNSP NEPHRITIC SYNDROME WITH UNSPECIFIED MORPHOLOGIC CHANGES Status: Chronic Priority: High (6) Immunocompromised due to corticosteroids SNOMED Code(s): 820008232 ICD Code: D84.821 - IMMUNODEFICIENCY DUE TO DRUGS; T38.0X5A - ADVERSE EFFECT OF GLUCOCORT/SYNTH ANALOG, INIT; Z79.52 - CARE HOME (CURRENT) USE OF SYSTEMIC STEROIDS Status: Chronic Priority: High (7) Lactic acidosis SNOMED Code(s): 76617876 ICD Code: E87.2 - ACIDOSIS Status: Resolved Priority: High (8) Sepsis SNOMED Code(s): 42288992 ICD Code: A41.9 - SEPSIS, UNSPECIFIED ORGANISM Status: Resolved Priority: High Qualifiers: Sepsis type: sepsis due to unspecified organism Sepsis acute organ dysfunction status: with acute organ dysfunction Severe sepsis acute organ dysfunction type: unspecified Severe sepsis shock status: without septic shock Qualified Code(s): A41.9 - Sepsis, unspecified organism; R65.20 - Severe sepsis without septic shock (9) Hypomagnesemia SNOMED Code(s): 336564693 ICD Code: E83.42 - HYPOMAGNESEMIA Status: Acute Priority: High - Patient Summary/Data Labs Pending at D/C: None Recommended Follow-up Testing/Procedures: Follow-up with primary care provider within 7 to 10 days of discharge, sooner if needed. * Recommend recheck CBC, CMP, and magnesium in follow-up * Patient prescribed short 3-day course of 400 mg daily magnesium as she has been low here. Please follow-up on this. * Patient reported continued right upper quadrant very mild abdominal pain which she states is chronic for her. She states she is in the process of having this worked up. * All home medications continued at discharge. * No infectious source of her diarrhea or vomiting found. No antibiotics prescribed at discharge. Hospital Course: This is a 30-year-old female presents to ED on 04/08/2021 with nausea, vomiting, and diarrhea. 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 She resides in [place] but has been working in [place]. She reports she ate at [employer] and then began feeling somewhat poor. She had supper at [employer], but was already feeling poor by then. She noted bilious emesis and yellow diarrhea but no signs of any blood. WBC on admission was noted to be 15.14. This has trended downward. She was started on Rocephin and metronidazole on admission. She was given IV fluids along with Tylenol and Dilaudid for pain and antiemetics. Due to her leukocytosis, tachycardia, tachypnea, possible bacterial infection, and lactic acid level of 3.0 she was deemed septic. Blood cultures were obtained and were negative. Repeat lactic acid was within normal limits. test was negative. TSH was 1.540. Serum ketones are 0.27. Lipase was within normal limits. Urine culture was negative. CRP improved and procalcitonin on admission was 0.14. Overall she has been doing very well. Her diarrhea continues but is much improved. She denies any current nausea. Her diet was advanced to regular and she has been tolerating this well. Her magnesium was low twice while here and she will be supplemented 2 g IV magnesium prior to discharge. She will be discharged on a 3-day course of 400 mg daily p.o. magnesium. Recommend she follow-up with primary care provider within 7-10 days of discharge, sooner if needed. Recommend repeat CBC, CMP, and magnesium at that time/paying special attention to magnesium. Stool studies were negative and fecal lactoferrin was negative. She will not receive any IV antibiotics at discharge. All home medications were continued. She did report right upper quadrant abdominal pain which was very mild and has been chronic for her. Patient states that she has been working this up locally and we will defer to them. Discharge today. She plans to return to [place] after discharge. - Patient Instructions Diet: Usual Diet as Tolerated Activity: As Tolerated Driving: May Drive Today Showering/Bathing: May Shower Notify Provider of: Fever, Increased Pain, Nausea and/or Vomiting Other/Special Instructions: With primary care provider within 7 to 10 days of discharge, sooner if needed. Your magnesium was low here and was supplemented. You will be given a prescription for a short course of oral magnesium daily. Please take this until complete. Take it easy with your diet. Avoid spicy and fatty foods. Stick with bland things until you start to feel better. Resume all home meds as directed. All your testing showed no concerns for infectious sources of your symptoms. You will not be prescribed any antibiotics at discharge. Should you notice any worsening diarrhea, nausea and vomiting, fever, bloody stool, bloody vomiting, or other concerns contact primary care provider or return to the emergency room. - Discharge Plan *PRESCRIPTION DRUG MONITORING PROGRAM REVIEWED*: Not Applicable *COPY OF PRESCRIPTION DRUG MONITORING REPORT IN PATIENT VINOD: Not Applicable Prescriptions/Med Rec: Magnesium Oxide [Magnesium] 400 mg PO DAILY #3 capsule Home Medications: Home Meds Norethindrone-Ethin. Estradiol [Nortrel 0.5-35-28 Tablet] 1 tab PO DAILY 04/08/21 [History] Sulfamethoxazole/Trimethoprim [Sulfamethoxazole-Tmp Ss Tablet] 1 each PO MOWEFR 04/08/21 [History] cycloSPORINE, Modified [Neoral] 100 mg PO BID 04/08/21 [History] lisinopriL [Lisinopril] 40 mg PO DAILY 04/08/21 [History] predniSONE [Prednisone] 20 mg PO DAILY 04/08/21 [History] Magnesium Oxide [Magnesium] 400 mg PO DAILY #3 capsule 04/10/21 [Rx] Oxygen Therapy Mode: Room Air Patient Handouts: Viral Gastroenteritis, Adult, [id number] Referrals: Shira Osorio MD [Ordering Only Provider] - 04/16/21 9:20 am (Please arrive at 9:10) - Discharge Summary/Plan Comment DC Time >30 min.: No Total # of Minutes for Discharge Time: 20 - General Info Date of Service: 04/10/21 Functional Status: Reports: Pain Controlled, Tolerating Diet, Ambulating, Urinating. Denies: New Symptoms - Review of Systems General: Reports: No Symptoms. Denies: Fever, Weakness, Fatigue, Malaise, Chills HEENT: Reports: No Symptoms. Denies: Headaches, Sore Throat Pulmonary: Reports: No Symptoms. Denies: Shortness of Breath, Cough, Sputum, Wheezing Cardiovascular: Reports: No Symptoms. Denies: Chest Pain, Palpitations, Dyspnea on Exertion, Edema Gastrointestinal: Reports: Abdominal Pain (Mild chronic RUP), Diarrhea (improving ). Denies: Constipation, Nausea, Vomiting Genitourinary: Reports: No Symptoms. Denies: Pain Musculoskeletal: Reports: No Symptoms Skin: Reports: No Symptoms. Denies: Cyanosis Neurological: Reports: No Symptoms. Denies: Confusion, Headache, Numbness, Pre- Existing Deficit, Syncope, Tingling, Difficulty Walking, Weakness, Gait Disturbance Psychiatric: Reports: No Symptoms - Patient Data Vitals - Most Recent: Last Vital Signs Temp 98.1 F 04/09/21 21:04 Pulse 99 04/09/21 21:04 Resp 16 04/09/21 21:04 BP 147/102 H 04/10/21 08:22 Pulse Ox 97 04/09/21 21:04 Weight - Most Recent: 71.123 kg I&O - Last 24 hours: Intake & Output 04/09/21 04/10/21 04/10/21 22:59 06:59 14:59 Intake Total 2510 1250 Output Total 2050 1500 Balance 460 -250 Lab Results - Last 24 hrs: Laboratory Results - last 24 hr 04/08/21 04/10/21 04/10/21 Range/Units 08:52 06:10 06:10 WBC 4.73 (3.98-10.04) K/mm3 RBC 3.97 L (3.98-5.22) M/mm3 Hgb 12.1 (11.2-15.7) gm/dl Hct 38.1 (34.1-44.9) % MCV 96.0 H (79.4-94.8) fl MCH 30.5 (25.6-32.2) pg MCHC 31.8 L (32.2-35.5) g/dl RDW Std Deviation 46.6 H (36.4-46.3) fL Plt Count 224 (182-369) K/mm3 MPV 9.3 L (9.4-12.3) fl Neut % (Auto) 65.6 (34.0-71.1) % Lymph % (Auto) 18.4 L (19.3-51.7) % [place] % (Auto) 14.6 H (4.7-12.5) % Eos % (Auto) 0.4 L (0.7-5.8) Baso % (Auto) 0.2 (0.1-1.2) % Neut # (Auto) 3.10 (1.56-6.13) K/mm3 Lymph # (Auto) 0.87 L (1.18-3.74) K/mm3 [place] # (Auto) 0.69 H (0.24-0.36) K/mm3 Eos # (Auto) 0.02 L (0.04-0.36) K/mm3 Baso # (Auto) 0.01 (0.01-0.08) K/mm3 Sodium 142 (136-145) mEq/L Potassium 3.8 (3.5-5.1) mEq/L Chloride 108 H (98-107) mEq/L Carbon Dioxide 25 (21-32) mEq/L Anion Gap 12.8 (5-15) BUN 13 (7-18) mg/dL Creatinine 1.1 H (0.55-1.02) mg/dL Est Cr Clr Drug Dosing 63.99 mL/min Estimated GFR (MDRD) 58 (>60) mL/min BUN/Creatinine Ratio 11.8 L (14-18) Glucose 91 (70-99) mg/dL Calcium 7.6 L (8.5-10.1) mg/dL Magnesium 1.4 L (1.8-2.4) mg/dL Total Bilirubin 0.2 (0.2-1.0) mg/dL AST 21 (15-37) U/L ALT 25 (14-59) U/L Alkaline Phosphatase 16 L (46-116) U/L C-Reactive Protein 5.8 H* (<1.0) mg/dL Total Protein 5.5 L (6.4-8.2) g/dl Albumin 2.5 L (3.4-5.0) g/dl Globulin 3.0 gm/dL Albumin/Globulin Ratio 0.8 L (1-2) Procalcitonin 0.14 H ng/mL AMELIE Results - Last 24 hrs: Microbiology 04/08/21 09:30 Blood Culture - Preliminary Blood - Venous - Lab Draw 04/08/21 09:20 Blood Culture - Preliminary Blood - Venous 04/08/21 10:32 Urine Culture - Preliminary Urine 04/08/21 10:32 Stool Culture - Preliminary Stool / Feces Shiga Toxin I & II - Final Med Orders - Current: Current Medications Acetaminophen (Acetaminophen 325 Mg Tab) 650 mg PO Q4H PRN PRN Reason: Pain (Mild 1-3)/fever Last Admin: 04/10/21 05:30 Dose: 650 mg Documented by: Cyclosporine (Modified) (Cyclosporine, Modified 100 Mg Cap) 100 mg PO BID [facility] Last Admin: 04/10/21 08:23 Dose: 100 mg Documented by: Hydromorphone HCl (Hydromorphone 0.5 Mg/0.5 Ml Syringe) 0.5 mg IVPUSH Q2H PRN PRN Reason: Pain (severe 7-10) Magnesium Sulfate 2 gm/ Premix 50 mls @ 25 mls/hr IV ONETIME ONE Stop: 08/27/21 10:15 Lisinopril (Lisinopril 20 Mg Tab) 40 mg PO DAILY [facility] Last Admin: 04/10/21 08:22 Dose: 40 mg Documented by: Ondansetron HCl (Ondansetron 4 Mg/2 Ml Sdv) 4 mg IV Q6H PRN PRN Reason: Nausea/Vomiting Oxycodone HCl (Oxycodone 5 Mg Tab) 5 mg PO Q4H PRN PRN Reason: Pain (moderate 4-6) Prednisone (Prednisone 20 Mg Tab) 20 mg PO DAILY [facility] Last Admin: 04/10/21 08:23 Dose: 20 mg Documented by: Sodium Chloride (Sodium Chloride 0.9% 10 Ml Syringe) 10 ml FLUSH ONETIME PRN PRN Reason: IV FLUSH Last Admin: 04/08/21 11:27 Dose: 10 ml Documented by: Discontinued Medications Acetaminophen (Acetaminophen 325 Mg Tab) 975 mg PO ONETIME ONE Stop: 04/08/21 10:49 Last Admin: 04/08/21 12:23 Dose: 975 mg Documented by: Hydrocortisone Sodium Succinate (Hydrocortisone Sodium Succinate 100 Mg/2 Ml Sdv) 100 mg IVPUSH ONETIME ONE Stop: 04/08/21 08:52 Last Admin: 04/08/21 10:31 Dose: 100 mg Documented by: Hydromorphone HCl (Hydromorphone 0.5 Mg/0.5 Ml Syringe) 0.5 mg IVPUSH ONETIME ONE Stop: 04/08/21 08:37 Last Admin: 04/08/21 08:45 Dose: 0.5 mg Documented by: Hydromorphone HCl (Hydromorphone 0.5 Mg/0.5 Ml Syringe) 0.5 mg IVPUSH ONETIME ONE Stop: 04/08/21 10:17 Last Admin: 04/08/21 10:31 Dose: 0.5 mg Documented by: Dextrose/Lactated Ringer's (Dextrose 5%-Lactated Ringers) 1,000 mls @ 999 mls/hr IV ASDIRECTED [facility] Last Admin: 04/08/21 08:45 Dose: 999 mls/hr Documented by: Sodium Chloride (Normal Saline) 1,000 mls @ 250 mls/hr IV ASDIRECTED [facility] Last Admin: 04/08/21 10:30 Dose: 250 mls/hr Documented by: Ceftriaxone Sodium 2 gm/ (Sodium Chloride) 100 mls @ 200 mls/hr IV ONETIME ONE Stop: 04/08/21 12:53 Last Admin: 04/08/21 12:59 Dose: 200 mls/hr Documented by: Magnesium Sulfate 2 gm/ Premix 50 mls @ 25 mls/hr IV ONETIME ONE Stop: 04/08/21 15:07 Last Admin: 04/08/21 14:50 Dose: 25 mls/hr Documented by: Metronidazole 500 mg/ Premix 100 mls @ 100 mls/hr IV Q8H [facility] Last Admin: 04/10/21 05:22 Dose: 100 mls/hr Documented by: Ceftriaxone Sodium 2 gm/ (Sodium Chloride) 100 mls @ 200 mls/hr IV Q24H [facility] Last Admin: 04/09/21 12:25 Dose: 200 mls/hr Documented by: Lactated Ringer's (Ringers, Lactated) 1,000 mls @ 75 mls/hr IV ASDIRECTED [facility] Last Admin: 04/09/21 08:24 Dose: 75 mls/hr Documented by: Iopamidol (Iopamidol 612 Mg/Ml 100 Ml Bottle) 100 ml IVPUSH ONETIME ONE Stop: 04/08/21 11:20 Last Admin: 04/08/21 11:27 Dose: 100 ml Documented by: Metoclopramide HCl (Metoclopramide 10 Mg/2 Ml Sdv) 7.5 mg IVPUSH ONETIME ONE Stop: 04/08/21 08:37 Last Admin: 04/08/21 08:45 Dose: 7.5 mg Documented by: Ondansetron HCl (Ondansetron 4 Mg/2 Ml Sdv) 4 mg IVPUSH ONETIME ONE Stop: 04/08/21 10:17 Last Admin: 04/08/21 10:30 Dose: 4 mg Documented by: - Exam Quality Assessment: Reports: DVT Prophylaxis. Denies: Supplemental Oxygen, Urine Catheter General: Reports: Alert, Oriented, Cooperative, No Acute Distress HEENT: Reports: Pupils Equal, Pupils Reactive, Mucous Membr. Moist/[place] Neck: Reports: Supple, Trachea Midline Lungs: Reports: Clear to Auscultation, Normal Respiratory Effort Cardiovascular: Reports: Regular Rate, Regular Rhythm GI/Abdominal Exam: Normal Bowel Sounds, Soft, Non-Tender, No Distention (Female) Exam: Deferred Rectal (Female) Exam: Deferred Back Exam: Reports: Normal Inspection, Full Range of Motion Extremities: Normal Inspection, Normal Range of Motion, Non-Tender, No Pedal Edema, Normal Capillary Refill Skin: Reports: Warm, Dry, Intact Neurological: Reports: No New Focal Deficit, Strength Equal Bilateral Psy/Mental Status: Reports: Alert, Normal Affect, Normal Mood <Pavel Perez - Last Filed: 04/10/21 14:34> Discharge Summary - Referral to Home Health Primary Care Physician: PCP Not In Area - Patient Summary/Data Hospital Course: I have seen and examined the patient independently of Mike Penaloza PA-C and have discussed the case with him. I have reviewed and agree with the orders and plan of care outlined by him. Please see orders. - Patient Data Vitals - Most Recent: Last Vital Signs Temp 36.8 C 04/10/21 08:25 Pulse 82 04/10/21 08:25 Resp 16 04/10/21 08:25 BP 147/102 H 04/10/21 08:25 Pulse Ox 95 04/10/21 08:25 I&O - Last 24 hours: Intake & Output 04/09/21 04/10/21 04/10/21 22:59 06:59 14:59 Intake Total 2510 1250 Output Total 2050 1500 Balance 460 -250 Lab Results - Last 24 hrs: Laboratory Results - last 24 hr 04/10/21 04/10/21 Range/Units 06:10 06:10 WBC 4.73 (3.98-10.04) K/mm3 RBC 3.97 L (3.98-5.22) M/mm3 Hgb 12.1 (11.2-15.7) gm/dl Hct 38.1 (34.1-44.9) % MCV 96.0 H (79.4-94.8) fl MCH 30.5 (25.6-32.2) pg MCHC 31.8 L (32.2-35.5) g/dl RDW Std Deviation 46.6 H (36.4-46.3) fL Plt Count 224 (182-369) K/mm3 MPV 9.3 L (9.4-12.3) fl Neut % (Auto) 65.6 (34.0-71.1) % Lymph % (Auto) 18.4 L (19.3-51.7) % [place] % (Auto) 14.6 H (4.7-12.5) % Eos % (Auto) 0.4 L (0.7-5.8) Baso % (Auto) 0.2 (0.1-1.2) % Neut # (Auto) 3.10 (1.56-6.13) K/mm3 Lymph # (Auto) 0.87 L (1.18-3.74) K/mm3 [place] # (Auto) 0.69 H (0.24-0.36) K/mm3 Eos # (Auto) 0.02 L (0.04-0.36) K/mm3 Baso # (Auto) 0.01 (0.01-0.08) K/mm3 Sodium 142 (136-145) mEq/L Potassium 3.8 (3.5-5.1) mEq/L Chloride 108 H (98-107) mEq/L Carbon Dioxide 25 (21-32) mEq/L Anion Gap 12.8 (5-15) BUN 13 (7-18) mg/dL Creatinine 1.1 H (0.55-1.02) mg/dL Est Cr Clr Drug Dosing 63.99 mL/min Estimated GFR (MDRD) 58 (>60) mL/min BUN/Creatinine Ratio 11.8 L (14-18) Glucose 91 (70-99) mg/dL Calcium 7.6 L (8.5-10.1) mg/dL Magnesium 1.4 L (1.8-2.4) mg/dL Total Bilirubin 0.2 (0.2-1.0) mg/dL AST 21 (15-37) U/L ALT 25 (14-59) U/L Alkaline Phosphatase 16 L (46-116) U/L C-Reactive Protein 5.8 H* (<1.0) mg/dL Total Protein 5.5 L (6.4-8.2) g/dl Albumin 2.5 L (3.4-5.0) g/dl Globulin 3.0 gm/dL Albumin/Globulin Ratio 0.8 L (1-2) AMELIE Results - Last 24 hrs: Microbiology 04/08/21 10:32 Urine Culture - Final Urine 04/08/21 10:32 Stool Culture - Preliminary Stool / Feces Shiga Toxin I & II - Final 04/08/21 09:30 Blood Culture - Preliminary Blood - Venous - Lab Draw 04/08/21 09:20 Blood Culture - Preliminary Blood - Venous Med Orders - Current: Current Medications Discontinued Medications Acetaminophen (Acetaminophen 325 Mg Tab) 975 mg PO ONETIME ONE Stop: 04/08/21 10:49 Last Admin: 04/08/21 12:23 Dose: 975 mg Documented by: Acetaminophen (Acetaminophen 325 Mg Tab) 650 mg PO Q4H PRN PRN Reason: Pain (Mild 1-3)/fever Last Admin: 04/10/21 05:30 Dose: 650 mg Documented by: Cyclosporine (Modified) (Cyclosporine, Modified 100 Mg Cap) 100 mg PO BID [facility] Last Admin: 04/10/21 08:23 Dose: 100 mg Documented by: Hydrocortisone Sodium Succinate (Hydrocortisone Sodium Succinate 100 Mg/2 Ml Sdv) 100 mg IVPUSH ONETIME ONE Stop: 04/08/21 08:52 Last Admin: 04/08/21 10:31 Dose: 100 mg Documented by: Hydromorphone HCl (Hydromorphone 0.5 Mg/0.5 Ml Syringe) 0.5 mg IVPUSH ONETIME ONE Stop: 04/08/21 08:37 Last Admin: 04/08/21 08:45 Dose: 0.5 mg Documented by: Hydromorphone HCl (Hydromorphone 0.5 Mg/0.5 Ml Syringe) 0.5 mg IVPUSH ONETIME ONE Stop: 04/08/21 10:17 Last Admin: 04/08/21 10:31 Dose: 0.5 mg Documented by: Hydromorphone HCl (Hydromorphone 0.5 Mg/0.5 Ml Syringe) 0.5 mg IVPUSH Q2H PRN PRN Reason: Pain (severe 7-10) Dextrose/Lactated Ringer's (Dextrose 5%-Lactated Ringers) 1,000 mls @ 999 mls/hr IV ASDIRECTED [facility] Last Admin: 04/08/21 08:45 Dose: 999 mls/hr Documented by: Sodium Chloride (Normal Saline) 1,000 mls @ 250 mls/hr IV ASDIRECTED [facility] Last Admin: 04/08/21 10:30 Dose: 250 mls/hr Documented by: Ceftriaxone Sodium 2 gm/ (Sodium Chloride) 100 mls @ 200 mls/hr IV ONETIME ONE Stop: 04/08/21 12:53 Last Admin: 04/08/21 12:59 Dose: 200 mls/hr Documented by: Magnesium Sulfate 2 gm/ Premix 50 mls @ 25 mls/hr IV ONETIME ONE Stop: 04/08/21 15:07 Last Admin: 04/08/21 14:50 Dose: 25 mls/hr Documented by: Metronidazole 500 mg/ Premix 100 mls @ 100 mls/hr IV Q8H [facility] Last Admin: 04/10/21 05:22 Dose: 100 mls/hr Documented by: Ceftriaxone Sodium 2 gm/ (Sodium Chloride) 100 mls @ 200 mls/hr IV Q24H [facility] Last Admin: 04/09/21 12:25 Dose: 200 mls/hr Documented by: Lactated Ringer's (Ringers, Lactated) 1,000 mls @ 75 mls/hr IV ASDIRECTED [facility] Last Admin: 04/09/21 08:24 Dose: 75 mls/hr Documented by: Magnesium Sulfate 2 gm/ Premix 50 mls @ 25 mls/hr IV ONETIME ONE Stop: 04/10/21 10:15 Last Admin: 04/10/21 08:31 Dose: 25 mls/hr Documented by: Iopamidol (Iopamidol 612 Mg/Ml 100 Ml Bottle) 100 ml IVPUSH ONETIME ONE Stop: 04/08/21 11:20 Last Admin: 04/08/21 11:27 Dose: 100 ml Documented by: Lisinopril (Lisinopril 20 Mg Tab) 40 mg PO DAILY [facility] Last Admin: 04/10/21 08:22 Dose: 40 mg Documented by: Metoclopramide HCl (Metoclopramide 10 Mg/2 Ml Sdv) 7.5 mg IVPUSH ONETIME ONE Stop: 04/08/21 08:37 Last Admin: 04/08/21 08:45 Dose: 7.5 mg Documented by: Ondansetron HCl (Ondansetron 4 Mg/2 Ml Sdv) 4 mg IVPUSH ONETIME ONE Stop: 04/08/21 10:17 Last Admin: 04/08/21 10:30 Dose: 4 mg Documented by: Ondansetron HCl (Ondansetron 4 Mg/2 Ml Sdv) 4 mg IV Q6H PRN PRN Reason: Nausea/Vomiting Oxycodone HCl (Oxycodone 5 Mg Tab) 5 mg PO Q4H PRN PRN Reason: Pain (moderate 4-6) Prednisone (Prednisone 20 Mg Tab) 20 mg PO DAILY [facility] Last Admin: 04/10/21 08:23 Dose: 20 mg Documented by: Sodium Chloride (Sodium Chloride 0.9% 10 Ml Syringe) 10 ml FLUSH ONETIME PRN PRN Reason: IV FLUSH Last Admin: 04/08/21 11:27 Dose: 10 ml Documented by:
== END 2021-04-10 10:40 | disposition home or self-care (01) | DRG 720 ==
LOC: JD.ED 08:20 → JD.MS 12:34
PROVIDERS: ADMIT Internal Medicine; ATTEND Internal Medicine
DX: A41.9 Sepsis, unspecified organism (principal); R11.2 Nausea with vomiting, unspecified; R19.7 Diarrhea, unspecified; N05.9 Unspecified nephritic syndrome with unspecified morphologic changes; D84.821 Immunodeficiency due to drugs; T38.0X5A Adverse effect of glucocorticoids and synthetic analogues, initial encounter; E87.2 Acidosis; R65.20 Severe sepsis without septic shock; E83.42 Hypomagnesemia; Y92.89 Other specified places as the place of occurrence of the external cause; Z20.822 Contact with and (suspected) exposure to COVID-19; Z79.52 Long term (current) use of systemic steroids
CPT/HCPCS: 0240U; 36415; 74018; 74018-26; 74177; 74177-26; 80053; 81001; 82009; 83605; 83630; 83690; 83735; 84145; 84443; 84703; 85025; 86140; 87040; 87045; 87046; 87086; 87493; 87899; 96374; 96375; 96376; 99222; 99233; 99238; 99285; 99285-25; A9270-GY; J0696; J1170; J1720; J2405; J2765; J3475; J3490; J7030; J7120; J7121; J7502; J7512; Q9967